=== PATIENT | male | born 1985 | race Caucasian/White ===

== ENCOUNTER 2018-05-20 11:47 | Emergency (ER) | payer OTHER ==
--- NOTE | 2018-05-20 12:10 | ER ---
Nurse's Notes [facility] Name: Carson Bridges Age: 32 yrs Sex: Male : 1985 Arrival Date: 05/20/2018 Time: 11:53 Bed 24 Private MD: Unknown, Unknown Diagnosis: Abscess of external ear-left Presentation: 05/20 11:58 Presenting complaint: Patient states: pimple behind L ear x "a few weeks" has gotten ss bigger and began draining today. Denies fever. Transition of care: patient was not received from another setting of care. Onset of symptoms was May 06, 2018. Risk Assessment: Do you want to hurt yourself or someone else? Patient reports no desire to harm self or others. Initial Sepsis Screen: Does the patient meet any 2 criteria? No. Patient's initial sepsis screen is negative. Does the patient have a suspected source of infection? No. Patient's initial sepsis screen is negative. Care prior to arrival: None. 11:58 Method Of Arrival: Ambulatory 11:58 Acuity: GALLO 4 ss Historical: - Allergies: 12:00 No Known Allergies; ss - Home Meds: 12:00 lisinopril 40 mg Oral tab 1 tab once daily [Active]; ss - PMHx: 12:00 Hypertension; ss - PSHx: 12:00 None; ss - Immunization history:: Adult Immunizations unknown. - Social history:: Smoking status: Patient uses tobacco products, smokes one pack cigarettes per day. - Ebola Screening: : Patient denies exposure to infectious person Patient denies travel to an Ebola-affected area in the 21 days before illness onset No symptoms or risks identified at this time. Screenin:33 Abuse screen: Denies threats or abuse. Denies injuries from another. Nutritional sv screening: No deficits noted. Tuberculosis screening: No symptoms or risk factors identified. Fall Risk None identified. Vital Signs: 11:58 BP 137 / 93; Pulse 76; Resp 16; Temp 98.3(TE); Pulse Ox 99% on R/A; Weight 102.06 kg; ss Height 6 ft. 1 in. (185.42 cm); Pain 0/10; 11:58 Body Mass Index 29.68 (102.06 kg, 185.42 cm) ED Course: 11:53 Patient arrived in ED. jb7 11:53 Unknown, Unknown is Private Physician. jb7 11:56 [facility] snw 11:56 Johnny Juarez MD is Attending Physician. snw 11:58 Arm band placed on right wrist. ss 11:59 Triage completed. ss 12:31 Becky Naidu, RN is Primary Nurse. ss 12:33 Patient has correct armband on for positive identification. sv 12:33 No provider procedures requiring assistance completed. Patient did not have IV access sv during this emergency room visit. Administered Medications: 12:33 Drug: Clindamycin 300 mg Route: PO; sv 12:33 Follow up: Response: Medication administered at discharge. sv 12:33 CANCELLED (Patient Refused): TORadol 60 mg IM once sv Outcome: 12:09 Discharge ordered by . snw 12:33 Discharged to home ambulatory, with family. sv 12:33 Condition: stable 12:33 Discharge instructions given to patient, Instructed on discharge instructions, follow up and referral plans. medication usage, Demonstrated understanding of instructions, follow-up care, medications, Prescriptions given X 2. 12:33 Patient left the ED. sv Signatures: Pippa Ohara, RN RN Nohelia Spivey FNP-C ROTOPRINTER-Csnw Becky Naidu, RN RN Randy Patel jb7
--- NOTE | 2018-05-20 12:10 | EDPHYS ---
Physician Documentation [facility] Name: Carson Bridges Age: 32 yrs Sex: Male : 1985 Arrival Date: 05/20/2018 Time: 11:53 Bed 24 Private MD: Unknown, Unknown ED Physician Johnny Juarez HPI: 05/20 12:14 This 32 yrs old Male presents to ER via Ambulatory with complaints of Skin snw Problem. 12:14 Onset: The symptoms/episode began/occurred gradually. Associated signs and symptoms: snw Pertinent positives: pressure. Modifying factors: The patient symptoms are alleviated by nothing, the patient symptoms are aggravated by squeezing . The patient has not experienced similar symptoms in the past. The patient has not recently seen a physician. Historical: - Allergies: 12:00 No Known Allergies; ss - Home Meds: 12:00 lisinopril 40 mg Oral tab 1 tab once daily [Active]; ss - PMHx: 12:00 Hypertension; ss - PSHx: 12:00 None; ss - Immunization history:: Adult Immunizations unknown. - Social history:: Smoking status: Patient uses tobacco products, smokes one pack cigarettes per day. - Ebola Screening: : Patient denies exposure to infectious person Patient denies travel to an Ebola-affected area in the 21 days before illness onset No symptoms or risks identified at this time. ROS: 12:14 Constitutional: Negative for fever, chills, and weight loss, Eyes: Negative for injury, snw pain, redness, and discharge, Neck: Negative for injury, pain, and swelling, Cardiovascular: Negative for chest pain, palpitations, and edema, Respiratory: Negative for shortness of breath, cough, wheezing, and pleuritic chest pain, Abdomen/GI: Negative for abdominal pain, nausea, vomiting, diarrhea, and constipation, Back: Negative for injury and pain, : Negative for injury, bleeding, discharge, and swelling, MS/Extremity: Negative for injury and deformity, Skin: Negative for injury, rash, and discoloration, Neuro: Negative for headache, weakness, numbness, tingling, and seizure. 12:14 ENT: Positive for "pimple behind left earlobe". Exam: 12:12 Constitutional: This is a well developed, well nourished patient who is awake, alert, snw and in no acute distress. Head/Face: Normocephalic, atraumatic. Eyes: Pupils equal round and reactive to light, extra-ocular motions intact. Lids and lashes normal. Conjunctiva and sclera are non-icteric and not injected. Cornea within normal limits. Periorbital areas with no swelling, redness, or edema. Neck: Trachea midline, no thyromegaly or masses palpated, and no cervical lymphadenopathy. Supple, full range of motion without nuchal rigidity, or vertebral point tenderness. No Meningismus. Chest/axilla: Normal chest wall appearance and motion. Nontender with no deformity. No lesions are appreciated. Cardiovascular: Regular rate and rhythm with a normal S1 and S2. No gallops, murmurs, or rubs. Normal PMI, no JVD. No pulse deficits. Respiratory: Lungs have equal breath sounds bilaterally, clear to auscultation and percussion. No rales, rhonchi or wheezes noted. No increased work of breathing, no retractions or nasal flaring. Abdomen/GI: Soft, non-tender, with normal bowel sounds. No distension or tympany. No guarding or rebound. No evidence of tenderness throughout. Back: No spinal tenderness. No costovertebral tenderness. Full range of motion. Skin: Warm, dry with normal turgor. Normal color with no rashes, no lesions, and no evidence of cellulitis. MS/ Extremity: Pulses equal, no cyanosis. Neurovascular intact. Full, normal range of motion. Neuro: Awake and alert, GCS 15, oriented to person, place, time, and situation. Cranial nerves II-XII grossly intact. Motor strength 5/5 in all extremities. Sensory grossly intact. Cerebellar exam normal. Normal gait. 12:12 ENT: External ear(s): left postauricular area with cystic lesion that pt "exploded" this am, central area of cyst with scabbed area. Vital Signs: 11:58 BP 137 / 93; Pulse 76; Resp 16; Temp 98.3(TE); Pulse Ox 99% on R/A; Weight 102.06 kg; ss Height 6 ft. 1 in. (185.42 cm); Pain 0/10; 11:58 Body Mass Index 29.68 (102.06 kg, 185.42 cm) ss MDM: 12:03 Patient medically screened. snw 12:15 Data reviewed: vital signs, nurses notes. Data interpreted: Pulse oximetry: on room air snw is 99 %. Interpretation: normal. Counseling: I had a detailed discussion with the patient and/or guardian regarding: the historical points, exam findings, and any diagnostic results supporting the discharge/admit diagnosis, the presence of at least one elevated blood pressure reading (>120/80) during this emergency department visit, the need for outpatient follow up, to return to the emergency department if symptoms worsen or persist or if there are any questions or concerns that arise at home. Special discussion: I discussed in detail with the patient the higher chance of wound infection based on his presenting history. Based on the history and exam findings, there is no indication for further emergent testing or inpatient evaluation. I discussed with the patient/guardian the need to see the ENT specialist for further evaluation of the symptoms. I discussed with the patient/guardian the need to see the general surgeon for further evaluation of the symptoms. I discussed with the patient/guardian the need to see the primary care provider for further evaluation of the symptoms. Administered Medications: 12:33 Drug: Clindamycin 300 mg Route: PO; sv 12:33 Follow up: Response: Medication administered at discharge. sv 12:33 CANCELLED (Patient Refused): TORadol 60 mg IM once sv Disposition: 17:12 Co-signature as Attending Physician, Johnny Juarez MD. rn Disposition: 05/20/18 12:09 Discharged to Home. Impression: Abscess of external ear - left. - Condition is Stable. - Discharge Instructions: Abscess, Heat Therapy. - Prescriptions for Clindamycin HCl 300 mg Oral Capsule - take 1 capsule by ORAL route every 8 hours for 10 days; 30 capsule. Diclofenac Sodium 75 mg Oral Tablet Sustained Release - take 1 tablet by ORAL route 2 times per day; 30 tablet. - Medication Reconciliation Form, Thank You Letter, Antibiotic Education, Prescription Opioid Use form. - Follow up: Private Physician; When: 2 - 3 days; Reason: Recheck today's complaints, Continuance of care, Re-evaluation by your physician. Follow up: Emergency Department; When: As needed; Reason: Worsening of condition. Signatures: Pippa Ohara RN RN sv Therrien, Shelly, [employer]PENTER [employer]OR SUPERVISOR-C [employer] SUPERVISOR-Csnw Juarez, Johnny, MD MD rn Smirch, Becky, RN RN ss Corrections: (The following items were deleted from the chart) 12:33 12:07 TORadol 60 mg IM once ordered. snw sv 12:33 12:09 05/20/2018 12:09 Discharged to Home. Impression: Abscess of external ear - left. sv Condition is Stable. Forms are Medication Reconciliation Form, Thank You Letter, Antibiotic Education, Prescription Opioid Use. Follow up: Private Physician; When: 2 - 3 days; Reason: Recheck today's complaints, Continuance of care, Re-evaluation by your physician. Follow up: Emergency Department; When: As needed; Reason: Worsening of condition. snw
[2018-05-20] MEDS ORDERED: CLINDAMYCIN HCL 150 MG CAP ONE (12:30)
[2018-05-20] MEDS ORDERED: KETOROLAC 30 MG/ML INJ ONE (12:31)
[2018-05-20 12:36] VITALS: BP 137/93; TEMP 98.3; O2SAT 99
== END 2018-05-20 12:33 | disposition home or self-care (01) ==
LOC: ER 11:47
DX: H60.02 Abscess of left external ear (principal); I10 Essential (primary) hypertension; F17.210 Nicotine dependence, cigarettes, uncomplicated
CPT/HCPCS: 99283

== ENCOUNTER 2018-05-24 22:53 | Observation (INO) | payer OTHER ==
--- OUTSIDE RECORDS SUMMARY | 2018-05-24 22:54 | XMS REPORT ---
:1985 Author Organization [employer] Care Team Providers Name Role Phone Mia Wilkes Provider Role Unavailable Allergies, Adverse Reactions, Alerts Substance Reaction Event Type N.K.D.A. Info Not Available Non Drug Allergy Problems Problem Type Condition Code Onset Dates Condition Status Assessment Hypertension I10 Active Problem Hypertension I10 Active Assessment Nicotine abuse Z72.0 Active Medications Medication Code Code Instructions Start End Date Status Dosage System Date Lisinopril [facility] [id number] 40 MG Orally May 14, Active 1 tablet Once a day 2017 [place] [id number] 1 MG Orally May 14, Sep 11, Active 1 tablet Continuing Twice a day 2017 2017 Month Evan Results No Known Results Summary Purpose [employer] Submission
[2018-05-24] MEDS ORDERED: NA CHLORIDE 0.9% 1,000 ML ONE (23:35)
[2018-05-24 23:53] LABS: Absolute Lymphocytes (CBC) 3.4 K/uL (0.7-4.9); Absolute Monocytes 0.5 K/uL (0.1-1.3); Absolute Neutrophil 5.1 K/uL (1.8-8.0); Basophils % 1.3 % (0-1.3); Eosinophils % 2.2 % (0-4.4); Hematocrit 43.3 % (39.6-49.0); Lymphocytes % 36.3 % (15.3-44.8); MCH 29.5 pg (27.0-35.0); MCV 85.2 fL (80-100); MPV 8.9 fL (7.6-11.3); Monocytes % 5.8 % (3.3-12.3); RBC Red Blood Cell Count 5.09 M/uL (4.33-5.43)
[2018-05-24 23:58] LABS: Protime INR 0.89
--- NOTE | 2018-05-25 00:16 | EDPHYS ---
Physician Documentation [facility] Name: Carson Bridges Age: 32 yrs Sex: Male : 1985 Arrival Date: 05/24/2018 Time: 22:57 Bed 6 Private MD: ED Physician Brett Loza HPI: 05/25 00:13 This 32 yrs old Male presents to ER via Ambulatory with complaints of R CHEST karla PAIN, R ARM PAIN. 00:13 The patient or guardian reports chest pain that is located primarily in the substernal karla area, anterior chest wall, right. The pain radiates to the right arm. Associated signs and symptoms: Pertinent positives: None. The chest pain is described as dull. Modifying factors: The symptoms are alleviated by nothing. the symptoms are aggravated by nothing. Severity of pain: At its worst the pain was mild in the emergency department the pain is unchanged. The patient has not experienced similar symptoms in the past. Historical: - Allergies: 05/24 23:08 No Known Allergies; fc - Home Meds: 23:08 lisinopril 40 mg Oral tab 1 tab once daily [Active]; fc - PMHx: 23:08 Hypertension; fc - PSHx: 23:08 gordon removed; EGD; wrist surg; fc - Immunization history:: Last tetanus immunization: unknown. - Social history:: Smoking status: Patient uses tobacco products, smokes one pack cigarettes per day. Patient/guardian denies using alcohol, street drugs. - Ebola Screening: : Patient negative for fever greater than or equal to 101.5 degrees Fahrenheit, and additional compatible Ebola Virus Disease symptoms Patient denies exposure to infectious person Patient denies travel to an Ebola-affected area in the 21 days before illness onset. - Family history:: not pertinent. ROS: 05/25 00:13 Constitutional: Negative for fever, chills, and weight loss, Eyes: Negative for injury, karla pain, redness, and discharge, ENT: Negative for injury, pain, and discharge, Neck: Negative for injury, pain, and swelling, Respiratory: Negative for shortness of breath, cough, wheezing, and pleuritic chest pain, Abdomen/GI: Negative for abdominal pain, nausea, vomiting, diarrhea, and constipation, Back: Negative for injury and pain, : Negative for injury, bleeding, discharge, and swelling, MS/Extremity: Negative for injury and deformity, Skin: Negative for injury, rash, and discoloration, Neuro: Negative for headache, weakness, numbness, tingling, and seizure, Psych: Negative for depression, anxiety, suicide ideation, homicidal ideation, and hallucinations, Allergy/Immunology: Negative for hives, rash, and allergies, Endocrine: Negative for neck swelling, polydipsia, polyuria, polyphagia, and marked weight changes, Hematologic/Lymphatic: Negative for swollen nodes, abnormal bleeding, and unusual bruising. Cardiovascular: Positive for chest pain, of the right supraclavicular area, right clavicle and anterior aspect of right upper chest. Exam: 00:13 Constitutional: This is a well developed, well nourished patient who is awake, alert, karla and in no acute distress. Head/Face: Normocephalic, atraumatic. Eyes: Pupils equal round and reactive to light, extra-ocular motions intact. Lids and lashes normal. Conjunctiva and sclera are non-icteric and not injected. Cornea within normal limits. Periorbital areas with no swelling, redness, or edema. ENT: Nares patent. No nasal discharge, no septal abnormalities noted. Tympanic membranes are normal and external auditory canals are clear. Oropharynx with no redness, swelling, or masses, exudates, or evidence of obstruction, uvula midline. Mucous membranes moist. Neck: Trachea midline, no thyromegaly or masses palpated, and no cervical lymphadenopathy. Supple, full range of motion without nuchal rigidity, or vertebral point tenderness. No Meningismus. Chest/axilla: Normal chest wall appearance and motion. Nontender with no deformity. No lesions are appreciated. Cardiovascular: Regular rate and rhythm with a normal S1 and S2. No gallops, murmurs, or rubs. Normal PMI, no JVD. No pulse deficits. Respiratory: Lungs have equal breath sounds bilaterally, clear to auscultation and percussion. No rales, rhonchi or wheezes noted. No increased work of breathing, no retractions or nasal flaring. Abdomen/GI: Soft, non-tender, with normal bowel sounds. No distension or tympany. No guarding or rebound. No evidence of tenderness throughout. Back: No spinal tenderness. No costovertebral tenderness. Full range of motion. Male : Normal genitalia with no discharge or lesions. Skin: Warm, dry with normal turgor. Normal color with no rashes, no lesions, and no evidence of cellulitis. MS/ Extremity: Pulses equal, no cyanosis. Neurovascular intact. Full, normal range of motion. Neuro: Awake and alert, GCS 15, oriented to person, place, time, and situation. Cranial nerves II-XII grossly intact. Motor strength 5/5 in all extremities. Sensory grossly intact. Cerebellar exam normal. Normal gait. Psych: Awake, alert, with orientation to person, place and time. Behavior, mood, and affect are within normal limits. Vital Signs: 05/24 23:09 BP 167 / 87 RA Sitting (auto/lg); Pulse 58; Resp 20; Temp 98.0(O); Pulse Ox 100% on fc R/A; Weight 104.33 kg (R); Height 6 ft. 1 in. (185.42 cm) (R); Pain 5/10; 23:09 BP 154 / 92; Pulse 54; Resp 15; Temp 98.1; Pulse Ox 99% on R/A; Pain 1/10; ak1 05/25 01:19 BP 154 / 92; Pulse 59; Resp 18; Temp 98.1(O); Pulse Ox 99% on R/A; Pain 0/10; ak1 02:50 BP 113 / 81; Pulse 57; Resp 16; Temp 98.1(O); Pulse Ox 99% on R/A; Pain 0/10; ak1 05/24 23:09 Body Mass Index 30.34 (104.33 kg, 185.42 cm) 05/24 23:09 pt refused morphine and zofran at this time. will re-assess at a later time. ak1 MDM: 23:18 Patient medically screened. [facility] 05/24 23:18 Order name: Basic Metabolic Panel; Complete Time: 00:40 [facility] 05/24 23:18 Order name: CBC with Diff; Complete Time: 00:12 [facility] 05/24 23:18 Order name: Ckmb; Complete Time: 00:40 [facility] 05/24 23:18 Order name: CPK; Complete Time: 00:40 [facility] 05/24 23:18 Order name: LFT's; Complete Time: 00:40 [facility] 05/24 23:18 Order name: Magnesium; Complete Time: 00:40 [facility] 05/24 23:18 Order name: NT PRO-BNP; Complete Time: 00:40 [facility] 05/24 23:18 Order name: PT-INR; Complete Time: 00:40 [facility] 05/24 23:18 Order name: Ptt, Activated; Complete Time: 00:40 [facility] 05/24 23:18 Order name: Troponin (emerg Dept Use Only); Complete Time: 00:40 [facility] 05/24 23:18 Order name: XRAY Chest (1 view) [facility] 05/24 23:18 Order name: D-Dimer; Complete Time: 00:40 [facility] 05/24 23:18 Order name: Lipase; Complete Time: 00:40 [facility] 05/24 23:39 Order name: Urine Dipstick--Ancillary (enter results) [facility] 05/24 23:18 Order name: EKG; Complete Time: 23:18 [facility] 05/24 23:18 Order name: Cardiac monitoring; Complete Time: 23:33 [facility] 05/24 23:18 Order name: EKG - Nurse/Tech; Complete Time: 23:33 [facility] 05/24 23:18 Order name: IV Saline Lock; Complete Time: 23:42 [facility] 05/24 23:18 Order name: Labs collected and sent; Complete Time: 23:42 [facility] 05/24 23:18 Order name: O2 Per Protocol; Complete Time: 23:25 [facility] 05/24 23:18 Order name: O2 Sat Monitoring; Complete Time: 23:25 [facility] 05/25 00:09 Order name: CT Aorta for Dissection [facility] 05/25 00:21 Order name: CONS Physician Consult [facility] 05/25 00:21 Order name: Echo with Doppler [facility] 05/24 23:18 Order name: Urine Dipstick-Ancillary (obtain specimen); Complete Time: 23:26 [facility] Administered Medications: 05/25 00:17 Drug: NS 0.9% 1000 ml Route: IV; Rate: 125 ml/hr; Site: left antecubital; ak1 00:43 Follow up: IV Status: Order to discontinue infusion ak1 00:22 Drug: Aspirin 162 mg Route: PO; ak1 00:31 Follow up: Response: No adverse reaction ak1 00:43 Drug: NS 0.9% 1000 ml Route: IV; Rate: 1 bolus; Site: left antecubital; ak1 01:54 Follow up: IV Status: Completed infusion ak1 01:10 Drug: Mucomyst - Acetylcysteine 600 mg Route: PO; ak1 01:53 Follow up: Response: No adverse reaction ak1 02:39 Not Given (Patient Refused): morphine 2 mg IVP once ak1 02:39 Not Given (Patient Refused): Zofran 4 mg IVP once; over 2 minutes ak1 Disposition: 05/25/18 00:15 Hospitalization ordered by Brain Colvin for Observation. Preliminary diagnosis are Chest pain, unspecified, Essential (primary) hypertension, Unspecified kidney failure. - Bed requested for Telemetry/MedSurg (observation). - Status is Observation. fc - Condition is Stable. - Problem is new. - Symptoms have improved. UTI on Admission? No Signatures: Dispatcher [employer] EDMS Trista Longoria rg2 Brett Loza MD MD cha Chretien, Felicia, RN RN Annalisa Wilson RN RN ak1 Corrections: (The following items were deleted from the chart) 01:17 00:15 Hospitalization Ordered by Brain Colvin MD for Observation. Preliminary rg2 diagnosis is Chest pain, unspecified; Essential (primary) hypertension. Bed requested for Telemetry/MedSurg (observation). Status is Observation. Condition is Stable. Problem is new. Symptoms have improved. UTI on Admission? No. karla 02:30 01:17 05/25/2018 00:15 Hospitalization Ordered by Brain Colvin MD for Observation. karla Preliminary diagnosis is Chest pain, unspecified; Essential (primary) hypertension. Bed requested for Telemetry/MedSurg (observation). Status is Observation. Condition is Stable. Problem is new. Symptoms have improved. UTI on Admission? No. rg2 03:08 02:30 05/25/2018 00:15 Hospitalization Ordered by Brain Colvin MD for Observation. fc Preliminary diagnosis is Chest pain, unspecified; Essential (primary) hypertension; Unspecified kidney failure. Bed requested for Telemetry/MedSurg (observation). Status is Observation. Condition is Stable. Problem is new. Symptoms have improved. UTI on Admission? No. karla
--- NOTE | 2018-05-25 00:16 | ER ---
Nurse's Notes [facility] Name: Carson Bridges Age: 32 yrs Sex: Male : 1985 Arrival Date: 05/24/2018 Time: 22:57 Bed 6 Private MD: Diagnosis: Chest pain, unspecified;Essential (primary) hypertension;Unspecified kidney failure Presentation: 05/24 23:05 Presenting complaint: Patient states: that he is having right sides chest pain that fc radiates to his right shoulder and right arm. Started at 2000 tonight while getting ready for bed. Denies any N/V/D or shortness of breath. Pt is currently on Clindamycin for abscess behind left ear. Transition of care: patient was not received from another setting of care. Onset of symptoms was May 24, 2018 at 20:00. Risk Assessment: Do you want to hurt yourself or someone else?. Care prior to arrival: None. 23:05 Method Of Arrival: Ambulatory 23:05 Acuity: GALLO 3 05/25 00:24 Initial Sepsis Screen: Does the patient meet any 2 criteria? No. Patient's initial ak1 sepsis screen is negative. Does the patient have a suspected source of infection? No. Patient's initial sepsis screen is negative. Historical: - Allergies: 05/24 23:08 No Known Allergies; fc - Home Meds: 23:08 lisinopril 40 mg Oral tab 1 tab once daily [Active]; fc - PMHx: 23:08 Hypertension; fc - PSHx: 23:08 gordon removed; EGD; wrist surg; fc - Immunization history:: Last tetanus immunization: unknown. - Social history:: Smoking status: Patient uses tobacco products, smokes one pack cigarettes per day. Patient/guardian denies using alcohol, street drugs. - Ebola Screening: : Patient negative for fever greater than or equal to 101.5 degrees Fahrenheit, and additional compatible Ebola Virus Disease symptoms Patient denies exposure to infectious person Patient denies travel to an Ebola-affected area in the 21 days before illness onset. - Family history:: not pertinent. Screenin:12 Abuse screen: Denies threats or abuse. Denies injuries from another. Nutritional ak1 screening: No deficits noted. Tuberculosis screening: No symptoms or risk factors identified. Fall Risk None identified. Assessment: 23:09 General: Appears in no apparent distress. Behavior is calm, cooperative. ak1 23:09 Pain: Complains of pain in right clavicle and right supraclavicular area. Neuro: No ak1 deficits noted. Cardiovascular: Reports chest pain, Denies nausea, shortness of breath, vomiting. Respiratory: No deficits noted. GI: No signs and/or symptoms were reported involving the gastrointestinal system. : No signs and/or symptoms were reported regarding the genitourinary system. EENT: No signs and/or symptoms were reported regarding the EENT system. Derm: No signs and/or symptoms reported regarding the dermatologic system. Musculoskeletal: No signs and/or symptoms reported regarding the musculoskeletal system. 05/25 00:33 Reassessment: Patient appears in no apparent distress at this time. No changes from ak1 previously documented assessment. Patient and/or family updated on plan of care and expected duration. Pain level reassessed. Patient is alert, oriented x 3, equal unlabored respirations, skin warm/dry/pink. Patient states feeling better. Patient states symptoms have improved. 01:49 Reassessment: pt waiting on CT results before ERP will allow report to be called and pt ak1 to be transported upstairs. . Vital Signs: 05/24 23:09 BP 167 / 87 RA Sitting (auto/lg); Pulse 58; Resp 20; Temp 98.0(O); Pulse Ox 100% on fc R/A; Weight 104.33 kg (R); Height 6 ft. 1 in. (185.42 cm) (R); Pain 5/10; 23:09 BP 154 / 92; Pulse 54; Resp 15; Temp 98.1; Pulse Ox 99% on R/A; Pain 1/10; ak1 05/25 01:19 BP 154 / 92; Pulse 59; Resp 18; Temp 98.1(O); Pulse Ox 99% on R/A; Pain 0/10; ak1 02:50 BP 113 / 81; Pulse 57; Resp 16; Temp 98.1(O); Pulse Ox 99% on R/A; Pain 0/10; ak1 05/24 23:09 Body Mass Index 30.34 (104.33 kg, 185.42 cm) 05/24 23:09 pt refused morphine and zofran at this time. will re-assess at a later time. ak1 ED Course: 22:57 Patient arrived in ED. al2 23:08 Triage completed. fc 23:09 Arm band placed on right wrist. Patient placed in an exam room, on a stretcher. fc 23:11 Annalisa Wilson, RN is Primary Nurse. ak1 23:18 Brett Loza MD is Attending Physician. karla 23:34 X-ray completed. Portable x-ray completed in exam room. Patient tolerated procedure kw well. 23:35 XRAY Chest (1 view) In Process Unspecified. EDMS 07 00:15 Brain Colvin MD is Hospitalizing Provider. karla 00:25 Patient has correct armband on for positive identification. Placed in gown. Bed in low ak1 position. Call light in reach. Side rails up X2. yarn cleaner on. Pulse ox on. NIBP on. 00:25 No provider procedures requiring assistance completed. Inserted saline lock: 20 gauge ak1 in left antecubital area, using aseptic technique. ,using aseptic technique. placed by Nancy Mesa Patient admitted, IV remains in place. 00:[address] via wheelchair. kw1 01:04 CT completed. Patient tolerated procedure well. Patient moved back from CT. kw1 Administered Medications: 00:17 Drug: NS 0.9% 1000 ml Route: IV; Rate: 125 ml/hr; Site: left antecubital; ak1 00:43 Follow up: IV Status: Order to discontinue infusion ak1 00:22 Drug: Aspirin 162 mg Route: PO; ak1 00:31 Follow up: Response: No adverse reaction ak1 00:43 Drug: NS 0.9% 1000 ml Route: IV; Rate: 1 bolus; Site: left antecubital; ak1 01:54 Follow up: IV Status: Completed infusion ak1 01:10 Drug: Mucomyst - Acetylcysteine 600 mg Route: PO; ak1 01:53 Follow up: Response: No adverse reaction ak1 02:39 Not Given (Patient Refused): morphine 2 mg IVP once ak1 02:39 Not Given (Patient Refused): Zofran 4 mg IVP once; over 2 minutes ak1 Outcome: 00:15 Decision to Hospitalize by Provider. karla 00:25 Condition: stable ak1 00:25 Instructed on the need for admit. 02:40 Admitted to Med/surg accompanied by tech, via wheelchair, room 217, with chart, Report ak1 called to Imelda castro RN 03:08 Patient left the ED. fc Signatures: Dispatcher [employer] EDBrett Galeano MD MD cha Chretien, Felicia RN RN Carol Hanson Amber, RN RN ak1 Kendy Interiano1 Judy Lam
[2018-05-25 00:22] LABS: ALT/SGPT 45 U/L (12-78); AST/SGOT 24 U/L (15-37); Albumin 3.9 g/dL (3.4-5.0); Alkaline Phosphatase 87 U/L (45-117); BUN Blood Urea Nitrogen 15 mg/dL (7-18); Bicarbonate 32 mmol/L (21-32); Bilirubin Direct < 0.1 mg/dL (0-0.2); Bilirubin Total 0.4 mg/dL (0.2-1.0); CKMB Creatine Kinase MB < 1.0 ng/mL (0.3-3.6); Creatine Phosphokinase 99 U/L (39-308); Glucose Level 104 mg/dL (74-106); Lipase 264 U/L (73-393); NT PRO-BNP 450 pg/mL (<125); Potassium 4.1 mmol/L (3.5-5.1); Protein, Total 7.6 g/dL (6.4-8.2); Sodium Level 142 mmol/L (136-145)
[2018-05-25] MEDS ORDERED: ASPIRIN 81 MG CHEWABLE TABLET ONE (00:24)
[2018-05-25] MEDS ORDERED: ALPRAZOLAM 0.25 MG TABLET PO PRN (01:06)
[2018-05-25] MEDS ORDERED: ACETAMINOPHEN 500 MG TAB PO PRN (01:06)
[2018-05-25] MEDS ORDERED: MORPHINE 4 MG/ML SYR IV PRN (01:06)
[2018-05-25] MEDS ORDERED: ACETYLCYST 6,000 MG/30 ML VIAL ONE (01:08)
[2018-05-25 01:21] LABS: Urine Blood NEGATIVE (NEG); Urine Glucose NEGATIVE (NEG); Urine Protein NEGATIVE (NEG); Urine Specific Gravity 1.015 (1.005-1.030)
[2018-05-25 03:14] VITALS: O2SAT 99
[2018-05-25 03:36] VITALS: BMI 29.8
--- NOTE | 2018-05-25 06:33 | EKG ---
Test Date: 2018-05-24 Test Time: 23:28:12 Sign Designer: YANDEL MEASUREMENT RESULTS: Intervals: Rate: 58 IN: 134 QRSD: 108 QT: 406 QTc: 398 [place]: P: 36 IN: 134 QRS: 72 T: 56 INTERPRETIVE STATEMENTS: Sinus bradycardia Incomplete right bundle branch block Borderline ECG No previous ECG available for comparison Electronically Signed On 05-25-18 06:32:28 CDT by Edgar Burgess
--- NOTE | 2018-05-25 06:33 | P.HP ---
Certification for Inpatient Patient admitted to: Observation With expected LOS: <2 Midnights Patient will require the following post-hospital care: None Practitioner: I am a practitioner with admitting privileges, knowledge of patient current condition, hospital course, and medical plan of care. Services: Services provided to patient in accordance with Admission requirements found in Title 42 Section 412.3 of the Code of Federal Regulations Patient History Date of Service: 05/25/18 Reason for admission: Chest pain rule out acute coronary syndrome History of Present Illness: Patient is a 32-year-old gentleman who came into the hospital with chest pain. Pain was mainly in the right-sided sternal region and radiated down his right arm. Patient had numbness and tingling in the right arm. Patient came in for further evaluation. Allergies No Known Allergies Allergy (Verified 05/25/18 03:13) Home Medications: Clindamycin HCl 300 mg PO TID 05/25/18 Diclofenac Sodium 75 mg PO BID 05/25/18 Lisinopril 40 mg PO DAILY 05/25/18 - Past Medical/Surgical History Has patient received pneumonia vaccine in the past: No Diabetic: No -: HTN - Family History Father Medical History: Hypertension - Social History Smoking Status: Current every day smoker Alcohol use: Yes CD- Drugs: No Caffeine use: Yes Place of Residence: Home Physical Examination - Vital Signs Temperature: 97.4 F Blood Pressure: 152/83 Pulse: 58 Respirations: 18 Pulse Ox (%): 97 - Studies Laboratory Data (last 24 hrs) 05/24/18 23:35: PT 10.5, INR 0.89, APTT 21.6 L 05/24/18 23:35: WBC 9.3, Hgb 15.0, Hct 43.3, Plt Count 224 05/24/18 23:35: Sodium 142, Potassium 4.1, BUN 15, Creatinine 1.50 H, Glucose 104, Magnesium 2.0, Total Bilirubin 0.4, AST 24, ALT 45, Alkaline Phosphatase 87 , Lipase 264 Assessment & Plan - Advance Directives Does patient have a Living Will: No Does patient have a Durable POA for Healthcare: No
--- NOTE | 2018-05-25 08:18 | RAD REPORT ---
EXAM DESCRIPTION: CT - Angio Aorta For Dissection - 05/25/2018 2:53 am CLINICAL HISTORY: . Chest pain/abdominal pain since 8 p.m. today COMPARISON: None all TECHNIQUE: Computed tomography angiography of the chest, abdomen pelvis were obtained. 100 cc Isovue 370 was administered intravenously. Coronal and sagittal reconstruction were performed.A preliminary report was generated by [employer] and reviewed prior to this dictation All CT scans are performed using dose optimization technique as appropriate and may include automated exposure control or mA/KV adjustment according to patient size. FINDINGS: An aortic dissection is not seen. An aortic aneurysm is not displayed. The celiac, SMA and BARBARA are patent . 2 main right renal arteries are present. A lung consolidation is not present. A pericardial effusion is not seen. A pleural effusion is not n oted. The liver,spleen, pancreas adrenals kidneys demonstrate no significant abnormality. A 19 millimeters cyst extends off of left kidney The appendix is normal. There no evidence diverticulitis. No ascites is noted. Small inguinal hernias contain fat IMPRESSION: Negative for an aortic dissection.
--- NOTE | 2018-05-25 08:18 | RAD REPORT ---
EXAM DESCRIPTION: Augustina Single View05/24/2018 11:38 pm CLINICAL HISTORY: Chest pain COMPARISON: 2011 FINDINGS: The lungs appear clear of acute infiltrate. The heart is normal size IMPRESSION: No acute abnormalities displayed
[2018-05-25] MEDS ORDERED: ASPIRIN EC 81 MG TAB PO SCH (09:00)
[2018-05-25] MEDS ORDERED: LISINOPRIL 10 MG TAB PO SCH (09:00)
[2018-05-25] MEDS ORDERED: METOPROLOL TAR 50 MG TAB PO SCH (09:00)
[2018-05-25] MEDS ORDERED: ENOXAPARIN 40 MG/0.4 ML SQ SCH (09:00)
[2018-05-25] MEDS: PANTOPRAZOLE 40MG TABLET PO SCH ×2 (10:21→10:22)
--- NOTE | 2018-05-25 10:37 | P.PN ---
Subjective Date of Service: 05/25/18 Primary Care Provider: Iraj Wilkes NP Chief Complaint: Chest pain rule out acute coronary syndrome Subjective: Improving Physical Examination - Vital Signs Temperature: 97.2 F Blood Pressure: 130/77 Pulse: 50 Respirations: 16 Pulse Ox (%): 99 - Physical Exam General: Alert, In no apparent distress, Oriented x3, Cooperative HEENT: Atraumatic Neck: Supple Respiratory: Clear to auscultation bilaterally, Normal air movement Cardiovascular: Normal pulses, Regular rate/rhythm Gastrointestinal: Normal bowel sounds, Soft and benign, Non-distended, No tenderness, No masses, No rebound, No guarding Musculoskeletal: No erythema, No tenderness, No warmth Integumentary: No tenderness/swelling, No erythema, No warmth, No cyanosis Neurological: Normal speech, Normal strength at 5/5 x4 extr, Normal tone, Normal affect Lymphatics: No axilla or inguinal lymphadenopathy - Studies Laboratory Data (last 24 hrs) 05/24/18 23:35: PT 10.5, INR 0.89, APTT 21.6 L 05/24/18 23:35: WBC 9.3, Hgb 15.0, Hct 43.3, Plt Count 224 05/24/18 23:35: Sodium 142, Potassium 4.1, BUN 15, Creatinine 1.50 H, Glucose 104, Magnesium 2.0, Total Bilirubin 0.4, AST 24, ALT 45, Alkaline Phosphatase 87 , Lipase 264 Medications List Reviewed: Yes Assessment & Plan - Problems (Diagnosis) (1) Chest pain Current Visit: Yes Status: Acute Plan: Patient with atypical right chest pain echo and stress test ordered. Anticipate possible discharge today if negative. Patient may have underlying GERD. Will provide PPI. Qualifiers: Chest pain type: unspecified Qualified Code(s): R07.9 - Chest pain, unspecified (2) Hypertension Current Visit: Yes Status: Chronic Plan: Will continue with medication. Patient takes MIRELLA-inhibitor at home. Will decrease MIRELLA-inhibitor due to renal insufficiency. Qualifiers: Hypertension type: essential hypertension Qualified Code(s): I10 - Essential (primary) hypertension (3) GERD (gastroesophageal reflux disease) Current Visit: Yes Status: Suspected Plan: Suspect GERD. Will provide medication. Patient may require a GI evaluation as an outpatient. Qualifiers: Esophagitis presence: esophagitis presence not specified Qualified Code(s) : K21.9 - Gastro-esophageal reflux disease without esophagitis (4) Renal insufficiency Current Visit: Yes Status: Acute Plan: Maybe from recent nonsteroidal anti-inflammatory use and MIRELLA-inhibitor. Will recheck BMP. Will check renal ultrasound. Discharge Plan: Home Plan to discharge in: 24 Hours Time Spent Managing Pts Care (In Minutes): 55
[2018-05-25 11:16] LABS: Potassium 4.1 mmol/L (3.5-5.1); Thyroid Stimulating Hormone 1.53 uIU/mL (0.36-3.74)
--- NOTE | 2018-05-25 11:55 | CON ---
Identification: A 32-year-old man. Chief Complaint: Pain in the chest. History Of Present Illness: Mr. Bridges started having chest pain 8:00 p.m. last night, upper rig ht part of his chest, pectoral muscle and above and radiates down his right arm. There was a throbbi ng pain that lasted about 4 hours. Largely has gone away. The patient has not had any injuries. No history of myocardial infarction, stroke, or vascular disease. Medications: He has hypertension and takes lisinopril for that. He also takes clindamycin for absce ss near his ear, diclofenac for joint pain intermittently. Allergies: HE HAS NO ALLERGIES. Social History: He is a regular cigarette smoker. He has been instructed on tobacco cessation. He does not report diabetes or dyslipidemia, any hospitalizations, any vascular surgeries, blood clots. Physical Examination: Vital Signs: Height 6 feet 1 inch, 226 pounds. HEENT: Unremarkable. Neck: No carotid bruit. Lungs: Clear. Heart: Everything is normal. I do not think there is an aortic regurgitation murmur. Abdomen: Soft. Extremities: Normal. No cyanosis, clubbing, or edema. Distal pulses normal. Vital Signs: Blood pressure this morning 152/83 on, arrival to his room 113/81. Laboratory Data: His troponins are all less than 0.02. His total cholesterol is 173, LDL 92, and HD L 28. Impression: Mr. Bridges probably is not having an acute coronary syndrome. His EKG would not sug gest it. I recommend, we do an echocardiogram and a nonnuclear stress test and we will proceed furth er with cardiac evaluation if either of those is abnormal. ANDRA/KRISTIAN Voice ID: [id number] Report ID: [id number]
[2018-05-25 12:06] VITALS: BP 134/82; TEMP 97.5
--- NOTE | 2018-05-25 12:06 | TREADMILL ---
70% H.R.: 131 85% H.R.: 159 90% H.R.: 168 100% H.R.: 187 DX: CHEST PAIN Date of Study: 05/25/2018 Ht: 6 1 Wt: 226 lb 3.2 oz Consulting Physician: THAIS MEDICATIONS: TYLENOL, XANAX, ASPIRIN, LOVENOX, PRINIVIL, LOPRESSOR, PROTNIX HISTORY: 32 YEAR OLD MALE WITH COMPLAINTS OF CHEST PAIN. MEDICAL HISTORY OF HYPERTENSION. SMOKER OF ONE PACK A DAY. PHYSICIAL EXAMINATION: RESTING B.P.: 140/86 RESTING H.R.: 59 RESTING EKG: SINUS BRADYCARDIA OTHERWISE NORMAL. PROTOCOL: SIDNEY ROUTINE EXERCISE TIME: 10:20 MAXIMUM HEART RATE: 171 91 % OF PREDICTED B.P. AT PEAK STRESS: 160/91 H.R. AT 1 MINUTE POST EXERCISE: 136 IMPRESSION: SIDNEY ROUTINE STRESS STOPPED DUE TO TARGET HEART RATE BEING REACHED PER PROTOCOL. NO SUPRAVENTRICULAR OR VENTRICULAR TACHYCARDIA NOTED. NO PREMATURE VENTRICULAR COMPLEXES NOTED. DENIED CHEST PAIN. NO ST DEPRESSION WITH STRESS. NORMAL STRESS TEST.
--- NOTE | 2018-05-25 12:16 | ECHO ---
HEIGHT: 6 ft 1 in WEIGHT: 226 lb 3.2 oz DATE OF STUDY: 05/25/[address]: Brett Loza MD 2-DIMENSIONAL: YES M.MODE: YES DOPPLER: YES COLOR FLOW: YES TDS: PORTABLE: DEFINITY: BUBBLE STUDY: DIAGNOSIS: CHEST PAIN CARDIAC HISTORY: CATHERIZATION: NO SURGERY: NO PROSTHETIC VALVE: NO PACEMAKER: NO MEASUREMENTS (cm) DIASTOLIC (NORMALS) SYSTOLIC (NORMALS) IVSd 1.0 (0.6-1.2) LA Diam 3.7 (1.9-4.0) LVEF 57% LVIDd 4.7 (3.5-5.7) LVIDs 3.3 (2.0-3.5) %FS 30% LVPWd 1.0 (0.6-1.2) Ao Diam 2.9 (2.0-3.7) 2 DIMENSIONAL ASSESSMENT: RIGHT ATRIUM: NORMAL LEFT ATRIUM: NORMAL RIGHT VENTRICLE: NORMAL LEFT VENTRICLE: NORMAL TRICUSPID VALVE: NORMAL MITRAL VALVE: NORMAL PULMONIC VALVE: NORMAL AORTIC VALVE: NORMAL PERICARDIAL EFFUSION: NONE AORTIC ROOT: NORMAL LEFT VENTRICULAR WALL MOTION: NORMAL DOPPLER/COLOR FLOW: NORMAL COMMENTS: NORMAL 2-DIMENSIONAL EHOCARDIOGRAM WITH DOPPLER. TECHNOLOGIST: NICHOLAS RIBEIRO
--- NOTE | 2018-05-25 12:34 | P.DS ---
Admission Date: 05/25/18 Discharge Date: 05/25/18 Primary Care Provider: Iraj Wilkes NP Disposition: ROUTINE DISCHARGE Discharge Condition: GOOD Reason for Admission: Chest pain rule out acute coronary syndrome Consultations: Cardiology-Iraj Wilkes NP Procedures: Cardiac exercise stress test: No stress-induced ischemia. Patient was able to reach target heart rate. No ST depression or elevation noted. Echocardiogram: Ejection fraction within normal range. Otherwise unremarkable. CT scan: FINDINGS: An aortic dissection is not seen. An aortic aneurysm is not displayed. The celiac, SMA and BARBARA are patent . 2 main right renal arteries are present. A lung consolidation is not present. A pericardial effusion is not seen. A pleural effusion is not noted. The liver,spleen, pancreas adrenals kidneys demonstrate no significant abnormality. A 19 millimeters cyst extends off of left kidney The appendix is normal. There no evidence diverticulitis. No ascites is noted. Small inguinal hernias contain fat IMPRESSION: Negative for an aortic dissection. - Problems (1) Chest pain Onset Date: 05/25/18 Current Visit: Yes Status: Acute Qualifiers: Chest pain type: unspecified Qualified Code(s): R07.9 - Chest pain, unspecified (2) Hypertension Onset Date: 05/25/18 Current Visit: Yes Status: Chronic Qualifiers: Hypertension type: essential hypertension Qualified Code(s): I10 - Essential (primary) hypertension (3) GERD (gastroesophageal reflux disease) Onset Date: 05/25/18 Current Visit: Yes Status: Suspected Qualifiers: Esophagitis presence: esophagitis presence not specified Qualified Code(s) : K21.9 - Gastro-esophageal reflux disease without esophagitis (4) Renal insufficiency Onset Date: 05/25/18 Current Visit: Yes Status: Acute (5) Dehydration Current Visit: Yes Status: Acute (6) Renal cyst, left Current Visit: Yes Status: Chronic Brief History of Present Illness: 32-year-old male present emergency room with chest pain Patient had right-sided chest pain that radiated to the arm. This was very atypical. Patient with history of hypertension. Patient was admitted for evaluation. Hospital Course: During the course of stay the patient was evaluated for chest pain. Cardiac enzymes unremarkable. EKG did not him any significant EKG changes. Patient was evaluated by cardiology. Cardiology recommended echocardiogram and exercise stress test. Echocardiogram showed normal ejection fraction. Otherwise unremarkable. Exercise stress test showed no stress-induced ischemia. Patient was able to reach target heart rate. No ST depression or elevation noted. Patient has hypertension. Medications were adjusted. Patient had elevated blood pressure upon admission. At discharge he will continue with aspirin 81 mg daily. Patient will continue with metoprolol 50 mg twice daily and lisinopril 10 mg daily. Recommendation is to maintain blood pressures less 150/80. Further adjustment can be done by his PCP. Patient had mild renal insufficiency. This is likely from dehydration. Repeat lab showed improvement. Recommendation to limit nonsteroidal anti-inflammatory use. Recommendation to recheck BMP in 1 week to monitor his progress. Lisinopril has been decreased to 10 mg daily. Patient was previously 40 mg of lisinopril daily. Patient may have underlying GERD. Patient reports a history of GERD. At discharge she will continue with Protonix 40 mg 1 pill once daily. Recommendation is for the patient follow up with GI as an outpatient to further assess. Lifestyle modification education provided. CT scan revealed left renal cyst. This is likely benign. Recommendation to recheck lab-BMP in 1-2 weeks to monitor his progress. This can be followed up as an outpatient. Vital Signs/Physical Exam: Temp Pulse Resp BP Pulse Ox 97.5 F 72 16 134/82 98 05/25/18 12:00 05/25/18 12:00 05/25/18 12:00 05/25/18 12:00 05/25/18 12:00 General: Alert, In no apparent distress, Oriented x3, Cooperative HEENT: Atraumatic Neck: Supple Respiratory: Clear to auscultation bilaterally, Normal air movement Cardiovascular: Normal pulses, Regular rate/rhythm Gastrointestinal: Normal bowel sounds, Soft and benign, Non-distended, No tenderness, No masses, No rebound, No guarding Musculoskeletal: No erythema, No tenderness, No warmth Integumentary: No tenderness/swelling, No erythema, No warmth, No cyanosis Neurological: Normal speech, Normal strength at 5/5 x4 extr, Normal tone, Normal affect Laboratory Data at Discharge: WBC 9.3 K/uL (4.3-10.9) 05/24/18 23:35 Hgb 15.0 g/dL (13.6-17.9) 05/24/18 23:35 Hct 43.3 % (39.6-49.0) 05/24/18 23:35 Plt Count 224 K/uL (152-406) 05/24/18 23:35 PT 10.5 SECONDS (9.5-12.5) 05/24/18 23:35 INR 0.89 05/24/18 23:35 APTT 21.6 SECONDS (24.3-36.9) L 05/24/18 23:35 Sodium 142 mmol/L (136-145) 05/25/18 09:37 Potassium 4.1 mmol/L (3.5-5.1) 05/25/18 09:37 BUN 13 mg/dL (7-18) 05/25/18 09:37 Creatinine 1.20 mg/dL (0.55-1.3) 05/25/18 09:37 Glucose 90 mg/dL (74-106) 05/25/18 09:37 Magnesium 2.0 mg/dL (1.8-2.4) 05/24/18 23:35 Total Bilirubin 0.4 mg/dL (0.2-1.0) 05/24/18 23:35 AST 24 U/L (15-37) 05/24/18 23:35 ALT 45 U/L (12-78) 05/24/18 23:35 Alkaline Phosphatase 87 U/L (45-117) 05/24/18 23:35 Troponin I < 0.02 ng/mL (0.0-0.045) 05/25/18 09:37 Triglycerides 266 mg/dL (<150) H 05/25/18 03:47 Cholesterol 173 mg/dL (<200) 05/25/18 03:47 HDL Cholesterol 28 mg/dL (40-60) L 05/25/18 03:47 Cholesterol/HDL Ratio 6.18 05/25/18 03:47 Lipase 264 U/L (73-393) 05/24/18 23:35 Home Medications: Aspirin [Aspirin EC 81 MG] 81 mg PO DAILY #90 tablet. 05/25/18 Lisinopril [Prinivil*] 10 mg PO DAILY #30 tab 05/25/18 Metoprolol Tartrate [Lopressor*] 50 mg PO BID #60 tab 05/25/18 Pantoprazole [Protonix Tab*] 40 mg PO DAILYAC #30 tab 05/25/18 New Medications: Aspirin [Aspirin EC 81 MG] 81 mg PO DAILY #90 tablet. Lisinopril [Prinivil*] 10 mg PO DAILY #30 tab Metoprolol Tartrate [Lopressor*] 50 mg PO BID #60 tab Pantoprazole [Protonix Tab*] 40 mg PO DAILYAC #30 tab Patient Discharge Instructions: 1. Patient will need a follow up with PCP in 1 week to follow up this hospitalization. 2. Patient presented with chest pain. Cardiac enzymes unremarkable. Patient was evaluated by cardiology. Cardiology recommended echocardiogram and exercise stress test. Echocardiogram showed normal ejection fraction. Otherwise unremarkable. Exercise stress test showed no stress-induced ischemia. 3. Patient has hypertension. Medications were adjusted due to elevated blood pressure upon admission. At discharge he will continue with aspirin 81 mg daily. Patient will also continue with metoprolol 50 mg twice daily and lisinopril 10 mg daily. Recommendation is to maintain blood pressures less 150/80. Further adjustment can be done by his PCP. Please note lisinopril was decreased to 10 mg daily. This was related to renal insufficiency upon admission. Hold medication if blood pressure less than 120 systolic. 4. Patient had mild renal insufficiency. This is likely from dehydration. Repeat lab showed improvement. Recommendation to limit nonsteroidal anti-inflammatory use. Recommendation to recheck BMP in 1 week to monitor his progress. Lisinopril has been decreased to 10 mg daily. Patient was previously 40 mg of lisinopril daily. 5. Patient may have underlying GERD. Patient reports a history of GERD. At discharge he will continue with Protonix 40 mg 1 pill once daily. Recommendation is for the patient follow up with GI as an outpatient to further assess. 6. CT scan revealed left renal cyst. This is likely benign. Recommendation to recheck lab-BMP in 1-2 weeks to monitor his progress. This can be followed up as an outpatient. Diet: AHA Activity: Ad megan Time spent managing pt's care (in minutes): 55
== END 2018-05-25 14:25 | disposition home or self-care (01) ==
LOC: ER 22:53 → ERHOLD 05-25 00:18 → 2ND 05-25 01:18
PROVIDERS: ADMIT Hospitalist; ATTEND Hospitalist
DX: R07.9 Chest pain, unspecified (principal); I10 Essential (primary) hypertension; N28.9 Disorder of kidney and ureter, unspecified; E86.0 Dehydration; N28.1 Cyst of kidney, acquired
CPT/HCPCS: 36415; 71045; 71275; 74175; 80048; 80061; 80076; 81003; 82550; 82553; 83690; 83735; 83880; 84439; 84443; 84484; 85025; 85379; 85610; 85730; 93005; 93017; 93306; 96360; 96361; 99285; G0378; J1650; J7030; Q9967

== ENCOUNTER 2019-10-25 17:00 | Emergency (ER) | payer OTHER ==
--- OUTSIDE RECORDS SUMMARY | 2019-10-25 17:02 | XMS REPORT ---
[...] End Date Status Dosage System Date Lisinopril [facility] [id number] 40 MG Orally May 14, Active 1 tablet Once a day 2017 [place] [id number] 1 MG Orally May 14, Sep 11, Active 1 tablet Continuing Twice a day 2017 2017 Month Evan Results No Known Results Summary Purpose eClinicalWorks Submission
--- OUTSIDE RECORDS SUMMARY | 2019-10-25 17:03 | XMS REPORT ---
:1985 Author Organization eClinicalWorks Care Team Providers Name Role Phone KatrinMia Provider Role Unavailable Allergies No Known Allergies Problems Problem Type Condition Code Onset Dates Condition Status Problem Hypertension I10 Active Medications No Known Medications Results No Known Results Summary Purpose eClinicalWorks Submission
--- OUTSIDE RECORDS SUMMARY | 2019-10-25 17:03 | XMS REPORT ---
:1985 Author Organization eClinicalWorks Care Team Providers Name Role Phone Mia Wilkes Provider Role Unavailable Allergies, Adverse Reactions, Alerts Substance Reaction Event Type N.K.D.A. Info Not Available Non Drug Allergy Problems Problem Type Condition Code Onset Dates Condition Status Problem Chest pain, unspecified R07.9 Active Problem Hypertension I10 Active Problem Reflux esophagitis K21.0 Active Assessment Reflux esophagitis K21.0 Active Assessment Hypertension I10 Active Medications Medication Code Code Instructions Start End Status Dosage System Date Date Chantix [facility] 14503625652 1 MG Orally May 14, Sep 11, Active 1 tablet Continuing Month Twice a day 2017 2017 Evan Lisinopril ND 98091777279 10 MG Orally June 11, Active 1 tablet Once a day [address] [facility] 58167149982 40 MG Orally May 14, Active 1 tablet Once a day 2017 Pantoprazole ND 26002533369 40 MG Orally June 11, Active 1 tablet Sodium Once a day [address] [facility] 70340082247 50 MG Orally June 11, Active 1 tablet Tartrate Twice a day 2017 with food Fenofibrate ND 64022620656 145 MG Orally June 11, Active 1 tablet Once a day 2018 with food Results No Known Results Summary Purpose eClinicalWorks Submission
--- OUTSIDE RECORDS SUMMARY | 2019-10-25 17:03 | XMS REPORT ---
:1985 Author Organization eClinicalWorks Care Team Providers Name Role Phone Mia Wilkes Provider Role Unavailable Allergies No Known Allergies Problems Problem Type Condition Code Onset Dates Condition Status Problem Cigarette nicotine dependence F17.210 Active without complication Problem Reflux esophagitis K21.0 Active Problem Pure hyperglyceridemia E78.1 Active Problem Chest pain, unspecified R07.9 Active Problem Hypertension I10 Active Medications No Known Medications Results No Known Results Summary Purpose eClinicalWorks Submission
--- OUTSIDE RECORDS SUMMARY | 2019-10-25 17:03 | XMS REPORT ---
:1985 Author Organization eClinicalWorks Care Team Providers Name Role Phone Mia Wilkes Provider Role Unavailable Allergies, Adverse Reactions, Alerts Substance Reaction Event Type N.K.D.A. Info Not Available Non Drug Allergy Problems Problem Type Condition Code Onset Dates Condition Status Assessment Reflux esophagitis K21.0 Active Assessment Pure hyperglyceridemia E78.1 Active Assessment Cigarette nicotine dependence F17.210 Active without complication Problem Cigarette nicotine dependence F17.210 Active without complication Problem Reflux esophagitis K21.0 Active Problem Pure hyperglyceridemia E78.1 Active Assessment Hypertension I10 Active Problem Chest pain, unspecified R07.9 Active Problem Hypertension I10 Active Medications Medication Code Code Instructions Start End Date Status Dosage System Date Metoprolol [facility] 39366586256 50 MG Active TAKE 1 Tartrate TABLET BY MOUTH TWICE DAILY WITH FOOD Fenofibrate [facility] 26961178451 145 MG Active TAKE 1 TABLET BY MOUTH ONE TIME DAILY WITH FOOD Lisinopril [facility] 30722141875 10 MG Active TAKE 1 TABLET BY MOUTH ONE TIME DAILY Pantoprazole [facility] 24353445935 40 MG Active TAKE 1 Sodium TABLET BY MOUTH ONE TIME DAILY Results No Known Results Summary Purpose eClinicalWorks Submission
[2019-10-25 17:38] LABS: Absolute Lymphocytes (CBC) 3.8 K/uL (0.7-4.9); Hematocrit 41.4 % (39.6-49.0); Lymphocytes % 47.9 % (15.3-44.8); MPV 9.1 fL (7.6-11.3); RBC Red Blood Cell Count 4.84 M/uL (4.33-5.43)
--- NOTE | 2019-10-25 17:41 | RAD REPORT ---
EXAM DESCRIPTION: RAD - Chest Single View - 10/25/2019 5:35 pm CLINICAL HISTORY: PALPITATIONS Chest pain. COMPARISON: Chest Single View dated 05/24/2018; CHEST PA AND LAT 2 VIEW dated 05/11/2012 FINDINGS: Portable technique limits examination quality. The lungs are grossly clear. The heart is normal in size. No displaced fractures. IMPRESSION: No acute intrathoracic process suspected.
[2019-10-25] MEDS ORDERED: METOPROLOL TAR 50 MG TAB ONE (17:56)
[2019-10-25 18:11] LABS: BUN Blood Urea Nitrogen 8 mg/dL (7-18); Bicarbonate 26 mmol/L (21-32); Glucose Level 111 mg/dL (74-106); Magnesium 2.2 mg/dL (1.8-2.4); NT PRO-BNP 36 pg/mL (<125); Potassium 3.4 mmol/L (3.5-5.1); Sodium Level 141 mmol/L (136-145); Troponin (Emerg Dept Use Only) < 0.02 ng/mL (0.0-0.045)
[2019-10-25 18:22] LABS: Anisocytosis 1+; Blood Morphology Comment NOTED (NOT SEEN); Platelet Estimate ADEQ; Poikilocytosis 1+
--- NOTE | 2019-10-25 18:31 | EDPHYS ---
Physician Documentation [facility] Name: Carson Bridges Age: 34 yrs Sex: Male : 1985 Arrival Date: 10/25/2019 Time: 17:03 Bed 24 Private MD: ED Physician Johnny Juarez HPI: 10/25 17:21 This 34 yrs old Male presents to ER via Wheelchair with complaints of Chest rn Pain, Dizziness. 17:21 The patient presents with a history of heart racing. Context: The symptoms occur at rn rest. Onset: The symptoms/episode began/occurred just prior to arrival. Duration: The patient or guardian reports a single episode, that lasted 5 minute(s). Modifying factors: The symptoms are aggravated by nothing. The symptoms are alleviated by nothing. Associated signs and symptoms: Pertinent positives: lightheadedness, Pertinent negatives: chest pain, cough, fever, SOB, syncope, unusual stressors, vertigo, vomiting. Severity of symptoms: At their worst the symptoms were moderate in the emergency department the symptoms have resolved. The patient has not experienced similar symptoms in the past. The patient has not recently seen a physician. Reports palpitations, happened while driving, at rest, resolved by time he got here, has never happened before. No fever/chest pain/sob/abd pain/vomiting/diarrhea. No famhx of early cardiac problems. 1 year ago admitted for chest pain, had neg ECHO/CT chest/stress test. Does drink energy drinks, denies drug use. . Historical: - Allergies: 17:07 No Known Allergies; aj1 - Home Meds: 17:07 lisinopril 40 mg Oral tab 1 tab once daily [Active]; Metoprolol Tartrate Oral [Active]; aj1 fenofibrate oral oral [Active]; - PMHx: 17:07 Hypertension; aj1 - Immunization history:: Flu vaccine is not up to date. - Social history:: Smoking status: Patient uses tobacco products, smokes one-half pack cigarettes per day. - Ebola Screening: : Patient denies travel to an Ebola-affected area in the 21 days before illness onset. - Family history:: not pertinent. - Hospitalizations: : No recent hospitalization is reported. ROS: 17:21 Constitutional: Negative for fever, chills, and weight loss, Eyes: Negative for injury, rn pain, redness, and discharge, ENT: Negative for injury, pain, and discharge, Neck: Negative for injury, pain, and swelling, Cardiovascular: Negative for chest pain, + palpitations Respiratory: Negative for shortness of breath, cough, wheezing, and pleuritic chest pain, Abdomen/GI: Negative for abdominal pain, nausea, vomiting, diarrhea, and constipation, MS/Extremity: Negative for injury and deformity, Skin: Negative for injury, rash, and discoloration, Neuro: Negative for headache, weakness, and seizure. Exam: 17:21 Constitutional: This is a well developed, well nourished patient who is awake, alert, rn appears anxious Head/Face: Normocephalic, atraumatic. Eyes: Pupils equal round and reactive to light, extra-ocular motions intact. Lids and lashes normal. Conjunctiva and sclera are non-icteric and not injected. Cornea within normal limits. Periorbital areas with no swelling, redness, or edema. ENT: MMM Cardiovascular: Regular rate and rhythm, no murmur. No pulse deficits. Respiratory: Clear bilateral breath sounds. No increased work of breathing, no retractions or nasal flaring. Abdomen/GI: soft, non-tender MS/ Extremity: Pulses equal, no cyanosis. Neurovascular intact. Full, normal range of motion. Equal circumference. Neuro: Awake and alert, GCS 15, oriented to person, place, time, and situation. Cranial nerves II-XII grossly intact. Motor strength 5/5 in all extremities. Sensory grossly intact. Vital Signs: 17:07 BP 167 / 94; Pulse 94; Resp 18; Temp 98.4; Pulse Ox 100% on R/A; Weight 104.33 kg (R); aj1 Height 6 ft. 1 in. (185.42 cm) (R); Pain 0/10; 17:45 BP 165 / 107; Pulse 78; Resp 14 S; Pulse Ox 100% on R/A; ca1 18:34 BP 142 / 102; Pulse 69; Resp 12 S; Pulse Ox 100% on R/A; ca1 17:07 Body Mass Index 30.34 (104.33 kg, 185.42 cm) aj1 MDM: 17:10 Patient medically screened. rn 17:50 ED course: Missed medication this AM, so metoprolol ordered given report of rn palpitations and hypertension here. . 17:51 ED course: Currently asymptomatic, awaiting rest of labs, normal d-dimer, no arrhythmia rn on ECG, if all normal and still asymptomatic and no events on monitor, will dc home with recommendation of cardiology f/u for holter and further w/u. Already had neg echo and stress test. . 18:30 Differential diagnosis: arrythmia, dehydration, stress disorder. Data reviewed: vital rn signs, nurses notes, lab test result(s), EKG, radiologic studies, plain films, and as a result, I will discharge patient. Counseling: I had a detailed discussion with the patient and/or guardian regarding: the historical points, exam findings, and any diagnostic results supporting the discharge/admit diagnosis, lab results, radiology results, the need for outpatient follow up, to return to the emergency department if symptoms worsen or persist or if there are any questions or concerns that arise at home. Response to treatment: the patient's symptoms have resolved after treatment, the patient's condition has returned to base line, the patient is now symptom free, and as a result, I will discharge patient. Special discussion: I discussed with the patient/guardian in detail that at this point there is no indication for admission to the hospital. It is understood, however, that if the symptoms persist or worsen the patient needs to return immediately for re-evaluation. Based on the history and exam findings, there is no indication for further emergent testing or inpatient evaluation. I discussed with the patient/guardian the need to see the business supervisor for further evaluation of the symptoms. I discussed with the patient/guardian the need to see the primary care provider for further evaluation of the symptoms. 10/25 17:20 Order name: Basic Metabolic Panel; Complete Time: 18:27 rn 10/25 17:20 Order name: CBC with Diff; Complete Time: 18:27 rn 10/25 17:20 Order name: Magnesium; Complete Time: 18:27 rn 10/25 17:20 Order name: NT PRO-BNP; Complete Time: 18: rn 10/25 17:20 Order name: Troponin (emerg Dept Use Only); Complete Time: 18:27 rn 10/25 17:20 Order name: TSH; Complete Time: 18: rn 10/25 17:20 Order name: XRAY Chest (1 view); Complete Time: 17:53 rn 10/25 17:20 Order name: EKG; Complete Time: 17:21 rn 10/25 17:20 Order name: Cardiac monitoring; Complete Time: 17:26 rn 10/25 17:20 Order name: EKG - Nurse/Tech; Complete Time: 17:26 rn 10/25 17:20 Order name: D-Dimer; Complete Time: 17:49 rn 10/25 17:41 Order name: Manual Differential; Complete Time: 18:27 EDMS 10/25 17:20 Order name: IV Saline Lock; Complete Time: 17:26 rn 10/25 17:20 Order name: Labs collected and sent; Complete Time: 17:26 rn 10/25 17:20 Order name: O2 Per Protocol; Complete Time: 17:26 rn 10/25 17:20 Order name: O2 Sat Monitoring; Complete Time: 17:26 rn Administered Medications: 17:57 Drug: Metoprolol 25 mg Route: PO; ca1 18:35 Follow up: Response: No adverse reaction; Blood pressure is lowered ca1 17:58 Drug: Metoprolol 25 mg Route: PO; ca1 18:35 Follow up: Response: No adverse reaction; Blood pressure is lowered ca1 Disposition: 10/25/19 18:30 Discharged to Home. Impression: Palpitations. - Condition is Stable. - Discharge Instructions: Holter Monitoring, Palpitations. - Medication Reconciliation Form, Thank You Letter, Antibiotic Education, Prescription Opioid Use form. - Follow up: Edgar Burgess; When: As needed; Reason: Recheck today's complaints, Re-evaluation by your physician. - Problem is new. - Symptoms are resolved. Signatures: Dispatcher [employer] Ashley Vásquez RN RN aj1 Johnny Juarez MD MD rn AcobWhit RN RN ca1 Corrections: (The following items were deleted from the chart) 18:45 18:30 10/25/2019 18:30 Discharged to Home. Impression: Palpitations. Condition is ca1 Stable. Discharge Instructions: Holter Monitoring, Palpitations. Forms are Medication Reconciliation Form, Thank You Letter, Antibiotic Education, Prescription Opioid Use. Follow up: Edgar Burgess; When: As needed; Reason: Recheck today's complaints, Re-evaluation by your physician. Problem is new. Symptoms are resolved. rn
--- NOTE | 2019-10-25 18:31 | ER ---
Nurse's Notes [facility] Name: Carson Bridges Age: 34 yrs Sex: Male : 1985 Arrival Date: 10/25/2019 Time: 17:03 Bed 24 Private MD: Diagnosis: Palpitations Presentation: 10/25 17:04 Presenting complaint: Patient states: "I was driving home from work and my legs started aj1 tingling and I started to feel like I was going to pass out and my chest started pounding" Patient states that he now feels shaky and like he has a knot in his stomach but the palpitations have resolved at this time. Denies chest pain. Transition of care: patient was not received from another setting of care. Onset of symptoms was October 25, 2019. Risk Assessment: Do you want to hurt yourself or someone else? Patient reports no desire to harm self or others. Initial Sepsis Screen: Does the patient meet any 2 criteria? HR > 90 bpm. Does the patient have a suspected source of infection? No. Patient's initial sepsis screen is negative. Care prior to arrival: None. 17:04 Method Of Arrival: Wheelchair aj1 17:04 Acuity: GALLO 3 aj1 Triage Assessment: 17:07 General: Appears in no apparent distress. uncomfortable, Behavior is calm, cooperative, aj1 appropriate for age. Pain: Denies pain. Neuro: Level of Consciousness is awake, alert, obeys commands. Cardiovascular: Patient's skin is warm and dry. Respiratory: Airway is patent Respiratory effort is even, unlabored, Respiratory pattern is regular, symmetrical. Historical: - Allergies: 17:07 No Known Allergies; aj1 - Home Meds: 17:07 lisinopril 40 mg Oral tab 1 tab once daily [Active]; Metoprolol Tartrate Oral [Active]; aj1 fenofibrate oral oral [Active]; - PMHx: 17:07 Hypertension; aj1 - Immunization history:: Flu vaccine is not up to date. - Social history:: Smoking status: Patient uses tobacco products, smokes one-half pack cigarettes per day. - Ebola Screening: : Patient denies travel to an Ebola-affected area in the 21 days before illness onset. - Family history:: not pertinent. - Hospitalizations: : No recent hospitalization is reported. Screenin:19 Abuse screen: Denies threats or abuse. Denies injuries from another. Nutritional ca1 screening: No deficits noted. Tuberculosis screening: No symptoms or risk factors identified. Fall Risk IV access (20 points). Assessment: 17:10 Reassessment: Dr. Juarez at bedside. ca1 17:19 General: Appears in no apparent distress. comfortable, Behavior is calm, cooperative, ca1 appropriate for age. Pain: Denies pain. Pain does not radiate. Pain began Pt states, "there is really no pain, I just felt my heart pounding and racing, I felt dizzy, and my hands numb and tingly. Right now, I'm okay and don't feel it anymore". Neuro: Level of Consciousness is awake, alert, obeys commands, Oriented to person, place, time, situation, Appropriate for age Reports dizziness. Cardiovascular: Heart tones S1 S2 present Capillary refill < 3 seconds Patient's skin is warm and dry. Pulses are all present. Rhythm is sinus rhythm. Respiratory: Airway is patent Respiratory effort is even, unlabored, Respiratory pattern is regular, symmetrical. GI: Abdomen is round non-distended, Bowel sounds present X 4 quads. Abd is soft and non tender X 4 quads. : No deficits noted. No signs and/or symptoms were reported regarding the genitourinary system. EENT: No deficits noted. No signs and/or symptoms were reported regarding the EENT system. Derm: Skin is intact, is healthy with good turgor, Skin is pink, warm \\T\\ dry. Musculoskeletal: Circulation, motion, and sensation intact. Capillary refill < 3 seconds, Range of motion: intact in all extremities. 18:34 Reassessment: Patient appears in no apparent distress at this time. Patient is alert, ca1 oriented x 3, equal unlabored respirations, skin warm/dry/pink. Vital Signs: 17:07 BP 167 / 94; Pulse 94; Resp 18; Temp 98.4; Pulse Ox 100% on R/A; Weight 104.33 kg (R); aj1 Height 6 ft. 1 in. (185.42 cm) (R); Pain 0/10; 17:45 BP 165 / 107; Pulse 78; Resp 14 S; Pulse Ox 100% on R/A; ca1 18:34 BP 142 / 102; Pulse 69; Resp 12 S; Pulse Ox 100% on R/A; ca1 17:07 Body Mass Index 30.34 (104.33 kg, 185.42 cm) aj1 ED Course: 17:03 Patient arrived in ED. ag5 17:06 Triage completed. aj1 17:07 Arm band placed on Patient placed in an exam room. aj1 17:10 Johnny Juarez MD is Attending Physician. rn 17:16 Whit Gamboa RN is Primary Nurse. ca1 17:19 Patient has correct armband on for positive identification. Placed in gown. Bed in low ca1 position. Call light in reach. Side rails up X 1. air sampling and monitoring on. Pulse ox on. NIBP on. Warm blanket given. 17:19 No provider procedures requiring assistance completed. Initial lab(s) drawn, by ED ca1 staff, sent to lab. Inserted saline lock: 20 gauge in right antecubital area, using aseptic technique. ,using aseptic technique. By GER Diallo Blood collected. Patient maintains SpO2 saturation greater than 95% on room air. 17:36 XRAY Chest (1 view) In Process Unspecified. EDMS 18:30 Edgar Burgess MD is Referral Physician. rn 18:37 IV discontinued, intact, bleeding controlled, No redness/swelling at site. Pressure ca1 dressing applied. Administered Medications: 17:57 Drug: Metoprolol 25 mg Route: PO; ca1 18:35 Follow up: Response: No adverse reaction; Blood pressure is lowered ca1 17:58 Drug: Metoprolol 25 mg Route: PO; ca1 18:35 Follow up: Response: No adverse reaction; Blood pressure is lowered ca1 Outcome: 18:30 Discharge ordered by . rn 18:44 Discharged to home ambulatory, with family. ca1 18:44 Condition: stable 18:44 Discharge instructions given to patient, Instructed on discharge instructions, follow up and referral plans. Demonstrated understanding of instructions, follow-up care. 18:45 Patient left the ED. ca1 Signatures: Dispatcher [employer] EDMS Ashley Epps RN RN aj1 Johnny Juarez MD MD rn Acob, Cheryl, RN RN ca1 Castillo Mcallister ag5 Corrections: (The following items were deleted from the chart) 17:24 17:15 Reassessment: Dr. Juarez at [place] [id number]
[2019-10-25 19:01] VITALS: TEMP 98.4; O2SAT 100
[2019-10-25 19:03] VITALS: BP 142/102
--- NOTE | 2019-10-26 05:29 | EKG ---
Test Date: 2019-10-25 Test Time: 17:13:52 Fire Safety Director: ADELINA MEASUREMENT RESULTS: Intervals: Rate: 92 IN: 142 QRSD: 114 QT: 388 QTc: 479 [place]: P: 49 IN: 142 QRS: 75 T: 51 INTERPRETIVE STATEMENTS: Normal sinus rhythm Incomplete right bundle branch block Borderline ECG Compared to ECG 05/24/2018 23:28:12 Sinus bradycardia no longer present Electronically Signed On 10-26-19 05:28:40 CRIME SCENE ANALYST by Edgar Burgess
== END 2019-10-25 18:45 | disposition home or self-care (01) ==
LOC: ER 17:00
DX: R00.2 Palpitations (principal); I10 Essential (primary) hypertension; F17.210 Nicotine dependence, cigarettes, uncomplicated
CPT/HCPCS: 36415; 71045; 80048; 83735; 83880; 84443; 84484; 85025; 85379; 93005; 99285

== ENCOUNTER 2022-08-13 11:59 | Emergency (ER) | payer BC, OTHER ==
--- OUTSIDE RECORDS SUMMARY | 2022-08-13 12:32 | XMS REPORT | Continuity of Care Document ---
:1985 Author Organization [facility] t Address [address] [place] [address] Care Team Providers Name Role Phone Katrin Arlin Attending Clinician Unavailable Problems This patient has no known problems. Allergies, Adverse Reactions, Alerts This patient has no known allergies or adverse reactions. Medications Ordered Filled Start Stop Current Ordering Indication Dosage Frequency Signature Comments Components Source Medication Medication Date Date Medication? Clinician (SIG) Name Name Metoprolol Metoprolol Yes Arlin TAKE 1 Common Tartrate Tartrate [place] TABLET BY S pirit MOUTH - [facility] TWICE [facility] DAILY [facility] Lisinopril Lisinopril Yes Arlin TAKE 1 Common [place] TABLET BY Spirit MOUTH ONE - [facility] TIME DAILY [facility] Fenofibrate Fenofibrate Yes Arlin TAKE 1 Common [place] TABLET BY Spirit MOUTH ONE - [facility] TIME DAILY [facility] Procedures This patient has no known procedures. Encounters Start End Encounter Admission Attending Care Care Encounter Source Date/Time Date/Time Type Type Clinicians Facility Department ID 2022-05-[address] [facility] [id number] Common 08:13:01 Arlin [facility] 2021-12-[address] [facility] [id number] Common 14:36:42 Arlin [facility] 2021-12-[address] [facility] [id number] Common 14:32:21 Arlin [facility] 2021-12-12 Outpatient [place], STLMLC STLMLC [id number] Common 14:30:58 Arlin [id number] [facility] 2021-12-12 Outpatient [place], STLMLC STLMLC [id number] Common 13:14:00 Arlin [id number] [facility] 2022-05-31 2022-05-31 ambulatory STLMLC STLMLC [id number] Common 00:00:00 00:00:00 [facility] 2022-05-15 2022-05-15 ambulatory STLMLC STLMLC [id number] Common 00:00:00 00:00:00 [facility] 2021-11-23 2021-11-23 ambulatory STLMLC STLMLC [id number] Common 00:00:00 00:00:00 [facility] 2021-06-28 2021-06-28 Outpatient STLMLC STLMLC [id number] Common 00:00:00 00:00:00 [facility] 2021-04-27 2021-04-27 Outpatient STLMLC STLMLC [id number] Common 00:00:00 00:00:00 [facility] 2021-03-02 2021-03-02 Outpatient STLMLC STLMLC [id number] Common 00:00:00 00:00:00 [facility] 2020-10-27 2020-10-27 Outpatient STLMLC STLMLC [id number] Common 00:00:00 00:00:00 [facility] 2020-04-28 2020-04-28 [facility] [id number] Common 08:40:00 08:40:00 [facility] [address] [facility] 2019-10-29 2019-10-29 [facility] [id number] Common 08:20:00 08:20:00 [facility] [address] [facility] 2019-05-10 2019-05-10 [facility] [id number] Common 14:19:00 14:19:[address] [facility] 2019-04-30 2019-04-30 [facility] [id number] Common 09:00:00 09:00:00 t [facility] [address] [facility] 2018-06-11 2018-06-11 Outpatient [facility] [id number] Common 15:00:00 15:00:00 t [facility] [address] [facility] 2018-06-05 2018-06-05 Outpatient [facility] [id number] Common 09:10:00 09:10:00 t [facility] [address] [facility] 2018-05-14 2018-05-14 Outpatient Mamta Olearyt [id number] Common 11:00:00 11:00:00 t [facility] [address] [facility] Results This patient has no known results.
--- NOTE | 2022-08-13 13:02 | RAD REPORT ---
EXAM DESCRIPTION: CT - Head Brain Wo Cont - 08/13/2022 12:53 pm CLINICAL HISTORY: Numbness COMPARISON: None. TECHNIQUE: Computed axial tomography of the head was obtained. IV contrast was not requested. All CT scans are performed using dose optimization technique as appropriate and may include automated exposure control or mA/KV adjustment according to patient size. FINDINGS: An intracranial bleed is not seen . The ventricles are normal in caliber. No significant hypodense areas within the brain visualized No extra-axial fluid collection is noted. Fluid within the sinuses/ mastoids is not seen. Mucus retention cyst left maxillary sinus IMPRESSION: No acute intracranial abnormality is seen. If patient's symptoms persist MRI of the bra in would be recommended.
[2022-08-13 13:03] LABS: Absolute Lymphocytes (CBC) 1.7 K/uL (0.7-4.9); Lymphocytes % 17.2 % (15.3-44.8); MPV 8.1 fL (7.6-11.3); RBC Red Blood Cell Count 5.05 M/uL (4.33-5.43)
[2022-08-13] MEDS ORDERED: ASPIRIN 81 MG CHEWABLE TABLET ONE (13:03)
[2022-08-13] MEDS ORDERED: ATORVASTATIN 20 MG TAB ONE (13:03)
[2022-08-13] MEDS ORDERED: CLOPIDOGREL 75 MG TABLET ONE (13:03)
[2022-08-13 13:08] LABS: Protime INR 1.04
--- NOTE | 2022-08-13 13:22 | RAD REPORT ---
EXAM DESCRIPTION: CTHead angio08/13/2022 1:01 pm CLINICAL HISTORY: Numbness COMPARISON: None TECHNIQUE: CT angiogram of the head was obtained. 3D MIPS reconstruction performed. All CT scans are performed using dose optimization technique as appropriate and may include automated exposure control or mA/KV adjustment according to patient size. FINDINGS: The basilar, internal carotid, anterior cerebral, middle cerebral and posterior cerebral a rteries are normal caliber. An aneurysm is not seen. A significant stenosis is not noted. origin right posterior cerebral artery IMPRESSION: No significant abnormality is displayed
--- NOTE | 2022-08-13 13:23 | RAD REPORT ---
EXAM DESCRIPTION: Juli Angio08/13/2022 1:01 pm CLINICAL HISTORY: Numbness COMPARISON: None TECHNIQUE: 50 cc Isovue 370 was administered intravenously. 3D MIP reconstruction performed All CT scans are performed using dose optimization technique as appropriate and may include automated exposure control or mA/KV adjustment according to patient size. FINDINGS: The common carotid, internal carotid and external carotid arteries bilaterally are normal caliber. No plaque noted. Vertebral arteries are codominant. No significant stenosis. No dissection seen IMPRESSION: No acute abnormality displayed NASCET criteria used. Mild 0-49% stenosis Moderate 50-69% stenosis Severe 70-99% stenosis
[2022-08-13 13:24] LABS: Albumin 4.4 g/dL (3.4-5.0); Bilirubin Direct 0.1 mg/dL (0-0.2); Bilirubin Total 0.5 mg/dL (0.2-1.0); Magnesium 1.9 mg/dL (1.8-2.4); Potassium 3.7 mmol/L (3.5-5.1); Protein, Total 8.3 g/dL (6.4-8.2); Troponin High Sensitivity 4.8 pg/mL (<58.9)
--- NOTE | 2022-08-13 13:40 | RAD REPORT ---
EXAM DESCRIPTION: Augustina Single View08/13/2022 1:11 pm CLINICAL HISTORY: Chest pain COMPARISON: 2018 none FINDINGS: The lungs appear clear of acute infiltrate. The heart is normal size IMPRESSION: No acute abnormalities displayed
[2022-08-13] MEDS ORDERED: FOLIC ACID 5 MG/ML VIAL ONE (13:56)
[2022-08-13] MEDS ORDERED: NA CHLORIDE 0.9% 1,000 ML ONE (16:36)
--- NOTE | 2022-08-13 16:52 | RAD REPORT ---
EXAM DESCRIPTION: MRI - Brain Wo Cont - 08/13/2022 4:13 pm CLINICAL HISTORY: Numbness COMPARISON: Head CT August 13, 2022 TECHNIQUE: Axial, sagittal, and coronal magnetic resonance images of the brain were obtained. FINDINGS: No significant abnormal signal within the brain. Diffusion-weighted/ADC mapping does not reveal evidence of acute infarction. The ventricles are normal caliber. An extra-axial fluid collection is not noted. Fluid within the sinuses/mastoids is not seen. Mucus retention cyst maxillary sinuses IMPRESSION: No acute intracranial abnormality noted
--- NOTE | 2022-08-13 17:19 | ER ---
Nurse's Notes [facility] Name: Carson Bridges Age: 37 yrs Sex: Male : 1985 Arrival Date: 08/13/2022 Time: 12:05 Bed 23 Private MD: Arlin Wilkes Diagnosis: Paresthesia of skin;Essential (primary) hypertension Presentation: 08/13 12:20 Acuity: GALLO 2 aa5 12:20 Chief complaint: Patient states: "I was just sitting at my desk when I started feeling aa5 tingling on my left shoulder and it went down my arm and down my left leg pain and I took my blood pressure and it was 181/111". Pt c/o tingling to left arm and left leg. Pt also reports juliann toe tingling. 12:20 Coronavirus screen: At this time, the client does not indicate any symptoms associated aa5 with coronavirus-19. Ebola Screen: Patient denies travel to an Ebola-affected area in the 21 days before illness onset. Initial Sepsis Screen: Does the patient meet any 2 criteria? No. Patient's initial sepsis screen is negative. Does the patient have a suspected source of infection? No. Patient's initial sepsis screen is negative. Risk Assessment: Do you want to hurt yourself or someone else? Patient reports no desire to harm self or others. Onset of symptoms was August 13, 2022 at 10:30. 12:20 Method Of Arrival: Ambulatory aa5 Triage Assessment: 17:36 General: Appears in no apparent distress. Behavior is calm, cooperative, appropriate jh5 for age. Historical: - Allergies: 12:20 No Known Allergies; aa5 - Home Meds: 12:20 fenofibrate Oral [Active]; aa5 12:30 lisinopril 20 mg oral tab once daily [Active]; metoprolol tartrate 50 mg oral tab 2 aa5 times per day [Active]; - PMHx: 12:20 Hypertension; aa5 - Immunization history:: Adult Immunizations unknown. - Social history:: Smoking status: Reported history of juuling and/or vaping. Screenin:34 Abuse screen: Denies threats or abuse. Denies injuries from another. Nutritional jh5 screening: No deficits noted. Tuberculosis screening: No symptoms or risk factors identified. Fall Risk None identified. Assessment: 12:32 Pain: Denies pain. Neuro: Level of Consciousness is awake, alert, obeys commands, jh5 Oriented to person, place, time, situation, Appropriate for age Field Mechanic are equal bilaterally Moves all extremities. Gait is steady, Speech is normal, Facial symmetry appears normal, Tingling in left arm and left leg. Cardiovascular: Capillary refill < 3 seconds Clubbing of nail beds is absent JVD is absent Patient's skin is warm and dry. Respiratory: Airway is patent Trachea midline Respiratory effort is even, unlabored, Respiratory pattern is regular, symmetrical. Vital Signs: 12:20 BP 190 / 101; Pulse 66; Resp 18 S; Temp 98.0(TE); Pulse Ox 98% on R/A; aa5 13:13 BP 170 / 98; Pulse 76; Resp 16; Pulse Ox 98% ; jh5 14:35 BP 156 / 101; Pulse 61; Resp 16; Pulse Ox 100% ; jh5 NIH Stroke Scale Scores: 12:34 NIHSS Score: 0 pm1 ED Course: 12:05 Patient arrived in ED. am2 12:05 Matthew Escoto MD is Private Physician. am2 12:05 Arlin Wilkes FNP-C is Private Physician. am2 12:15 Eliseo Bourgeois NP is [facility]. pm1 12:15 Brett Loza MD is Attending Physician. pm1 12:20 Triage completed. aa5 12:20 Arm band placed on. aa5 12:34 Kacy De Los Santos, GER is Primary Nurse. jh5 12:34 Patient has correct armband on for positive identification. Bed in low position. Call [facility] light in reach. 12:54 CT Head Brain wo Cont In Process Unspecified. EDMS 13:04 CT Head Angio In Process Unspecified. EDMS 13:04 CT Neck Angio In Process Unspecified. EDMS 13:10 XRAY Chest (1 view) In Process Unspecified. EDMS 13:12 Inserted saline lock: 20 gauge in right antecubital area, using aseptic technique. jh5 16:15 MRI - Brain Wo Cont In Process Unspecified. EDMS 17:19 César White MD is Referral Physician. pm1 17:36 No provider procedures requiring assistance completed. IV discontinued, intact, jh5 bleeding controlled, No redness/swelling at site. Pressure dressing applied. Administered Medications: 12:45 CANCELLED (Physician Discretion): Aspirin 325 mg PO once pm1 13:12 Drug: Aspirin 81 mg Route: PO; [facility] 13:12 Drug: PlaVIX (clopidogrel) 75 mg Route: PO; 5 13:12 Drug: Atorvastatin 80 mg Route: PO; [facility] 14:06 Drug: foLIC Acid 1 mg Route: IVPB; Site: right antecubital; [facility] 16:38 Drug: NS 0.9% 1000 ml Route: IV; Rate: 1000 ml; Site: right antecubital; [facility] Medication: 17:36 VIS not applicable for this client. [facility] Outcome: 17:19 Discharge ordered by MD. pm1 17:37 Discharged to home ambulatory. [facility] 17:37 Condition: good 17:37 Discharge instructions given to patient, Instructed on discharge instructions, follow up and referral plans. medication usage, safety practices, Demonstrated understanding of instructions, follow-up care, medications, Prescriptions given X 3. 17:37 Patient left the ED. [facility] NIH Stroke Scale - NIH Stroke Score Date: 08/13/2022 Time: 12:34 Total Score = 0 1a. Level of Consciousness (LOC) - 0(Alert) 1b. Level of Consciousness (LOC) (Month \\T\\ Age) - 0(Both) 1c. LOC Commands (Open \\T\\ Closes Eyes/Fashion Journalist) - 0(Both) 2. Best Gaze (Lateral Gaze Paresis) - 0(Normal) 3. Visual Field Loss - 0(No visual loss) 4. Facial Palsy - 0(Normal) 5a. Left Arm: Motor (10-second hold) - 0(No drift) 5b. Right Arm: Motor (10-second hold) - 0(No drift) 6a. Left Leg: Motor (5-second hold - always test supine) - 0(No drift) 6b. Right Leg: Motor (5-second hold - always test supine) - 0(No drift) 7. Limb Ataxia (finger/nose \\T\\ heel/villarreal - test with eyes open) - 0(Absent) 8. Sensory Loss (pinprick arms/legs/face) - 0(Normal) 9. Best Language: Aphasia (description/naming/reading) - 0(No aphasia) 10. Dysarthria (speech clarity - read or repeat words) - 0(Normal) 11. Extinction and Inattention (visual/tactile/auditory/spatial/personal) - 0(No abnormality) Initials: pm1 Signatures: Dispatcher [employer] EDKirsty Salomon, RN RN aa5 Eliseo Bourgeois NP ANIMAL CONTROL SUPERVISOR pm1 Destini Morales am2 Kacy De Los Santos RN RN jh5 Corrections: (The following items were deleted from the chart) 12:25 12:20 Chief complaint: Patient states: "I was just sitting at my desk when I aa5 started feeling tingling on my left shoulder and it went down my arm and down my left leg pain". Pt c/o tingling to left arm and left leg. aa5 12:28 12:20 Chief complaint: Patient states: "I was just sitting at my desk when I aa5 started feeling tingling on my left shoulder and it went down my arm and down my left leg pain". Pt c/o tingling to left arm and left leg. Pt also reports juliann toe tingling aa5 : 12:20 Home Meds: lisinopril 40 mg Oral tab 1 tab once daily; aa5 aa5 12: 12:20 Home Meds: Metoprolol Tartrate Oral; aa5 5
--- NOTE | 2022-08-13 17:20 | EDPHYS ---
Physician Documentation [facility] Name: Carson Bridges Age: 37 yrs Sex: Male : 1985 Arrival Date: 08/13/2022 Time: 12:05 Bed 23 Private MD: Arlin Wilkes ED Physician Brett Loza HPI: 08/13 12:34 This 37 yrs old Male presents to ER via Ambulatory with complaints of Arm Problem - pm1 tingling, Shoulder Pain, High Blood Pressure. 12:34 The patient presents to the emergency department with tingling to bilateral toes and pm1 left finger tips, left shoulder, and behind left knee. High blood pressure - patient with history of poorly controlled blood pressure. Onset: The symptoms/episode began/occurred today, at 10:30. Context: occurred at work, occurred while the patient was sitting. Associated signs and symptoms: Pertinent negatives: headache, paresthesias, weakness, chest pain, shortness of breath. Severity of symptoms: in the emergency department the symptoms are unchanged. Patient's baseline: Neuro: alert and fully oriented, Motor: no deficits, Ambulation: walks without assistance, Speech: normal. The patient has experienced a previous episode, similar symptoms in the past with hyperventilation episode. The patient has been recently seen by a physician: with different complaint(s), blood pressure management, lisinopril increased from 10 to 20 mg daily. Historical: - Allergies: 12:20 No Known Allergies; aa5 - Home Meds: 12:20 fenofibrate Oral [Active]; aa5 12:30 lisinopril 20 mg oral tab once daily [Active]; metoprolol tartrate 50 mg oral tab 2 aa5 times per day [Active]; - PMHx: 12:20 Hypertension; aa5 - Immunization history:: Adult Immunizations unknown. - Social history:: Smoking status: Reported history of juuling and/or vaping. ROS: 12:34 Constitutional: Negative for fever, chills, and weight loss, Cardiovascular: Negative pm1 for chest pain, palpitations, and edema, Respiratory: Negative for shortness of breath, cough, wheezing, and pleuritic chest pain, Abdomen/GI: Negative for abdominal pain, nausea, vomiting, diarrhea, and constipation. 12:34 : Negative for injury, bleeding, discharge, and swelling, MS/Extremity: Negative for injury and deformity, Skin: Negative for injury, rash, and discoloration. 12:34 Back: Positive for low back pain that resolved earlier today. Reports history of self diagnosed slipped disk. 12:34 Neuro: Positive for tingling to bilateral toes, behind left knee, left shoulder, and left finger tips, Negative for dizziness, gait disturbance, headache, numbness, visual changes, weakness. 12:34 All other systems are negative. Exam: 12:34 Constitutional: This is a well developed, well nourished patient who is awake, alert, pm1 and in no acute distress. Head/Face: Normocephalic, atraumatic. 12:34 Skin: Warm, dry with normal turgor. Normal color with no rashes, no lesions, and no evidence of cellulitis. MS/ Extremity: Pulses equal, no cyanosis. Neurovascular intact. Full, normal range of motion. 12:34 Eyes: Exam is negative for acute changes, Periorbital structures: appear normal, Pupils: no acute changes, Extraocular movements: no acute changes, Conjunctiva: no acute changes, no injection. 12:34 ENT: Exam is negative for acute changes, Nose: no acute changes, Mouth: no acute changes, Lips: normal, moist, Oral mucosa: normal, pink and intact, moist. 12:34 Cardiovascular: Exam negative for acute changes, Rate: normal, Rhythm: regular, Pulses: no pulse deficits are appreciated. 12:34 Respiratory: Exam negative for acute changes, respiratory distress, shortness of breath, Breath sounds: are clear throughout. 12:34 Abdomen/GI: Inspection: abdomen appears normal, Palpation: abdomen is soft and non-tender, in all quadrants. 12:34 Back: Exam negative for acute changes, pain, is absent, normal spinal alignment noted, muscle spasm, is not present. 12:34 Neuro: Exam negative for acute changes, Orientation: is normal, Mentation: is normal, Cranial nerves: CN II- XII are normal as tested, Cerebellar function: normal finger to nose testing, heel to villarreal testing is normal, Motor: is normal, Sensation: no obvious gross deficits, Gait: is steady, at a normal pace, without difficulty, can walk on tippy toes and heels without difficulty. Vital Signs: 12:20 BP 190 / 101; Pulse 66; Resp 18 S; Temp 98.0(TE); Pulse Ox 98% on R/A; aa5 13:13 BP 170 / 98; Pulse 76; Resp 16; Pulse Ox 98% ; jh5 14:35 BP 156 / 101; Pulse 61; Resp 16; Pulse Ox 100% ; jh5 NIH Stroke Scale Scores: 12:34 NIHSS Score: 0 pm1 MDM: 12:31 Patient medically screened. pm1 12:52 Physician consultation: César White MD regarding consult, patient's condition, pm1 would like further tests performed, CT head and neck angio since we do not have MRI, aspirin and plavix, folic acid and statin. No TNK since NIHSS score is zero. 17:18 Data reviewed: vital signs. Data interpreted: Pulse oximetry: on room air is 100 %. pm1 Interpretation: normal. Counseling: I had a detailed discussion with the patient and/or guardian regarding: the historical points, exam findings, and any diagnostic results supporting the discharge/admit diagnosis, lab results, radiology results, the need for outpatient follow up, to return to the emergency department if symptoms worsen or persist or if there are any questions or concerns that arise at home. 08/13 12:33 Order name: Basic Metabolic Panel; Complete Time: 14:04 pm08/13 12:33 Order name: CBC with Diff; Complete Time: 14:04 pm08/13 12:33 Order name: LFT's; Complete Time: 14:04 pm08/13 12:33 Order name: Magnesium; Complete Time: 14:04 pm08/13 12:33 Order name: NT PRO-BNP; Complete Time: 14:04 pm08/13 12:33 Order name: PT-INR; Complete Time: 14:04 pm08/13 12:33 Order name: CT Head Brain wo Cont; Complete Time: 13:03 pm08/13 12:33 Order name: Troponin HS; Complete Time: 14:04 pm08/13 12:33 Order name: XRAY Chest (1 view); Complete Time: 14:04 pm08/13 12:52 Order name: CT Head Angio; Complete Time: 14:04 pm08/13 12:52 Order name: CT Neck Angio; Complete Time: 14:04 pm08/13 14:43 Order name: CREATININE WHOLE BLOOD; Complete Time: 16:32 EDMS 08/13 15:08 Order name: MRI - Brain Wo Cont; Complete Time: 17:01 pm1 08/13 12:33 Order name: Cardiac monitoring; Complete Time: 12:52 pm1 08/13 12:33 Order name: EKG - Nurse/Tech; Complete Time: 12:52 pm1 08/13 12:33 Order name: IV Saline Lock; Complete Time: 12:52 pm1 08/13 12:33 Order name: Labs collected and sent; Complete Time: 12:52 pm1 08/13 12:33 Order name: O2 Per Protocol; Complete Time: 12:52 pm1 08/13 12:33 Order name: O2 Sat Monitoring; Complete Time: 12:52 pm1 Administered Medications: 12:45 CANCELLED (Physician Discretion): Aspirin 325 mg PO once pm1 13:12 Drug: Aspirin 81 mg Route: PO; [facility] 13:12 Drug: PlaVIX (clopidogrel) 75 mg Route: PO; [facility] 13:12 Drug: Atorvastatin 80 mg Route: PO; [facility] 14:06 Drug: foLIC Acid 1 mg Route: IVPB; Site: right antecubital; [facility] 16:38 Drug: NS 0.9% 1000 ml Route: IV; Rate: 1000 ml; Site: right antecubital; [facility] Disposition Summary: 08/13/22 17:19 Discharge Ordered Location: Home pm1 Problem: new pm1 Symptoms: have improved pm1 Condition: Stable pm1 Diagnosis - Paresthesia of skin pm1 - Essential (primary) hypertension pm1 Followup: pm1 - With: Emergency Department - When: As needed - Reason: Worsening of condition Followup: pm1 - With: Private Physician - When: 2 - 3 days - Reason: Recheck today's complaints, Continuance of care, Re-evaluation by your physician Followup: pm1 - With: César White MD - When: 2 - 3 days - Reason: Recheck today's complaints, Continuance of care, Re-evaluation by your physician Discharge Instructions: - Discharge Summary Sheet pm1 - Hypertension, Adult pm1 - Paresthesia pm1 - How to Take Your Blood Pressure, [id number] pm1 - Aspirin and Your Heart pm1 - DASH Eating Plan pm1 - Managing Your Hypertension pm1 Forms: - Medication Reconciliation Form pm1 - Thank You Letter pm1 - Antibiotic Education pm1 - Prescription Opioid Use pm1 Prescriptions: - Lipitor 40 mg Oral tablet - take 1 tablet by ORAL route once daily; 20 tablet; Refills: 0, Product pm1 Selection Permitted - Plavix 75 mg Oral Tablet - take 1 tablet by ORAL route once daily; 20 tablet; Refills: 0, Product pm1 Selection Permitted - Folic Acid 1 mg Oral Tablet - take 1 tablet by ORAL route once daily; 30 tablet; Refills: 0, Product pm1 Selection Permitted NIH Stroke Scale - NIH Stroke Score Date: 08/13/2022 Time: 12:34 Total Score = 0 1a. Level of Consciousness (LOC) - 0(Alert) 1b. Level of Consciousness (LOC) (Month \T\ Age) - 0(Both) 1c. LOC Commands (Open \T\ Closes Eyes/Marketing Information Analyst) - 0(Both) 2. Best Gaze (Lateral Gaze Paresis) - 0(Normal) 3. Visual Field Loss - 0(No visual loss) 4. Facial Palsy - 0(Normal) 5a. Left Arm: Motor (10-second hold) - 0(No drift) 5b. Right Arm: Motor (10-second hold) - 0(No drift) 6a. Left Leg: Motor (5-second hold - always test supine) - 0(No drift) 6b. Right Leg: Motor (5-second hold - always test supine) - 0(No drift) 7. Limb Ataxia (finger/nose \T\ heel/villarreal - test with eyes open) - 0(Absent) 8. Sensory Loss (pinprick arms/legs/face) - 0(Normal) 9. Best Language: Aphasia (description/naming/reading) - 0(No aphasia) 10. Dysarthria (speech clarity - read or repeat words) - 0(Normal) 11. Extinction and Inattention (visual/tactile/auditory/spatial/personal) - 0(No abnormality) Initials: pm1 Signatures: Dispatcher [employer] Kirsty Cota RN RN aa5 Eliseo Bourgeois NP KILN DOOR REPAIRER pm1 Kacy De oLs Santos RN RN jh5 Corrections: (The following items were deleted from the chart) 12:30 12:20 Home Meds: lisinopril 40 mg Oral tab 1 tab once daily; tonia5 aa5 12:30 12:20 Home Meds: Metoprolol Tartrate Oral; aa5 aa5 12:45 12:33 Aspirin 325 mg PO once ordered. pm1 pm1
[2022-08-15 21:52] VITALS: TEMP 98
[2022-08-15 21:55] VITALS: BP 156/101; O2SAT 100
== END 2022-08-13 17:37 | disposition home or self-care (01) ==
LOC: ER 11:59
DX: R20.2 Paresthesia of skin (principal); I10 Essential (primary) hypertension
CPT/HCPCS: 85025; 80048; 36415; 83735; 85610; 82565; 80076; 84484; 83880; 70450; 70496; 70498; 71045; 70551; Q9967; J7030; 96374; 99284

== ENCOUNTER 2025-03-25 10:26 | Emergency (ER) | payer BC ==
--- NOTE | 2025-03-25 11:27 | RAD REPORT ---
EXAMINATION: Head Brain Wo Cont CLINICAL INDICATION: Male, 39 years old.SYNCOPE TECHNIQUE: Axial CT images from the skull base to the vertex without intravenous contrast. Coronal an d sagittal reformatted images were created from the data set. One or more of the following dose reduction techniques were used: Automated exposure control, adjustment of the mA and/or kV according to patient size, and/or iterative reconstruction. Unless otherwise specified, incidental findings do not require dedicated imaging follow-up. [id number]. COMPARISON: 08/13/2022 FINDINGS: INTRACRANIAL: No acute intracranial hemorrhage. No hydrocephalus. No mass effect or midline shift. No significant white matter disease.Partially empty sella, typically normal variant. VASCULATURE: No visualized abnormalities in the arteries or dural venous sinuses. SCALP/SKULL: No calvarial fracture identified. No acute soft tissue abnormality. SINUSES: Bilateral maxillary sinus mucus retention cysts. No significant mastoid fluid. IMPRESSION: No acute intracranial abnormality. No significant change from prior.
--- NOTE | 2025-03-25 11:39 | RAD REPORT ---
EXAM: Chest Single View HISTORY: 39 years Male syncope COMPARISON: 08/13/2022 FINDINGS: LUNGS/PLEURA: The lungs are clear. No pleural effusions or pneumothorax. No pulmonary edema. CARDIAC/MEDIASTINUM: The cardiac silhouette is within normal limits. UPPER ABDOMEN: No significant abnormality. BONES: No acute abnormality. LINES/TUBES/OTHER: N/A IMPRESSION: No evidence of acute cardiopulmonary disease.
[2025-03-25] MEDS ORDERED: NA CHLORIDE 0.9% 1,000 ML ONE (11:42)
[2025-03-25 12:00] LABS: Absolute Eosinophils 0.1 K/uL (0-0.5); Absolute Lymphocytes (CBC) 1.5 K/uL (0.7-4.9); Absolute Monocytes 0.3 K/uL (0.1-1.3); Absolute Neutrophil 3.5 K/uL (1.8-8.0); Basophils % 0.8 % (0-1.3); Eosinophils % 1.8 % (0-4.4); Hematocrit 38.8 % (39.6-49.0); Hemoglobin 13.7 g/dL (13.6-17.9); Lymphocytes % 27.6 % (15.3-44.8); MCH 28.6 pg (27.0-35.0); MCHC 35.4 g/dL (32.0-36.0); MCV 80.7 fL (80-100); MPV 7.9 fL (7.6-11.3); Monocytes % 5.3 % (3.3-12.3); Neutrophils % 64.5 % (41.7-73.7); Nucleated Red Blood Cells % 0.1 % (0-0); Platelets 263 thou/uL (152-406); RBC Red Blood Cell Count 4.81 M/uL (4.33-5.43); Red Cell Distribution Width 13.1 % (12.1-15.2)
[2025-03-25 12:07] LABS: PT Prothrombin Time 11.5 SECONDS (10-13.0); PTT, Activated Partial Thromb 27.8 SECONDS (27.2-37.4); Protime INR 1.01
[2025-03-25 12:19] LABS: ALT/SGPT 56 U/L (16-61); AST/SGOT 17 U/L (15-37); Albumin 4.2 g/dL (3.4-5.0); Albumin/Globulin Ratio 1.2 (1.1-1.8); Alkaline Phosphatase 48 U/L (45-117); Anion Gap 9.2 mEq/L (5.0-15.0); BUN Blood Urea Nitrogen 18 mg/dL (7-18); Bicarbonate 31 mEq/L (21-32); Bilirubin Total 0.4 mg/dL (0.2-1.0); Globulin 3.6 g/dL (2.3-3.5); Glomerular Filtration Rate 57 ml/min (=/>90); Glucose Level 128 mg/dL (74-106); Magnesium 1.9 mg/dL (1.6-2.4); Potassium 3.2 mEq/L (3.5-5.1); Protein, Total 7.8 g/dL (6.4-8.2); Sodium Level 138 mEq/L (136-145); Troponin High Sensitivity 3.8 pg/mL (<58.9)
[2025-03-25 12:20] LABS: Bilirubin Direct < 0.2 mg/dL (0-0.2); Bilirubin Indirect, Calculated 0.2 mg/dL (0.2-0.8)
--- NOTE | 2025-03-25 12:55 | ER ---
Nurse's Notes [facility] – [place], [place] Name: Carson Bridges Age: 39 yrs Sex: Male : 1985 Arrival Date: 03/25/2025 Time: 10:26 Bed 20 Private MD: Diagnosis: Syncope Presentation: 03/25 11:15 Chief complaint: Patient states: passed out while at eye doctor , he felt himself get iw hot and was able to be laid down, did not hit head, he feels mostly back to normal. Coronavirus screen: At this time, the client does not indicate any symptoms associated with coronavirus-19. Ebola Screen: No symptoms or risks identified at this time. Initial Sepsis Screen: Does the patient meet any 2 criteria? No. Patient's initial sepsis screen is negative. Does the patient have a suspected source of infection? No. Patient's initial sepsis screen is negative. Risk Assessment: Do you want to hurt yourself or someone else? Patient reports no desire to harm self or others. Onset of symptoms was March 25, 2025. 11:15 Method Of Arrival: Ambulatory iw 11:15 Acuity: GALLO 3 iw Historical: - Allergies: 11:17 No Known Allergies; iw - PMHx: 11:05 Hypertension; iw 11:17 Hypercholesterolemia; iw - Immunization history:: Adult Immunizations unknown. - Infectious Disease History:: Denies. - Family history:: not pertinent. - Hospitalizations: : No recent hospitalization is reported. - Social history:: Smoking status: unknown. Screenin:50 [facility] ED Fall Risk Assessment (Adult) History of falling in the last 3 months, cm10 including since admission Yes- physiologic fall (2 pts) Confusion or Disorientation No (0 pts) Intoxicated or Sedated No (0 pts) Impaired Gait No (0 pts) Mobility Assist Device Used No (0 pt) Altered Elimination No (0 pt) Score/Fall Risk Level 0 - 2 = Low Risk Oriented to surroundings, Maintained a safe environment, Hourly rounding (assess needs \T\ fall precautionary measures) done. Abuse screen: Denies threats or abuse. Denies injuries from another. Nutritional screening: No deficits noted. Tuberculosis screening: No symptoms or risk factors identified. Assessment: 11:50 General: Appears in no apparent distress. comfortable, Behavior is calm, cooperative. cm10 Pain: Denies pain. Neuro: No deficits noted. Level of Consciousness is awake, alert, obeys commands, Oriented to person, place, time, situation, Appropriate for age Reports a syncopal episode. Cardiovascular: Patient's skin is warm and dry. Rhythm is regular. Respiratory: No deficits noted. Airway is patent Respiratory effort is even, unlabored, Respiratory pattern is regular, symmetrical. Derm: Skin is pink, warm \T\ dry. 13:00 Reassessment: Patient appears in no apparent distress at this time. Patient and/or cm10 family updated on plan of care and expected duration. Pain level reassessed. Patient is alert, oriented x 3, equal unlabored respirations, skin warm/dry/pink. Vital Signs: 11:05 BP 122 / 78; Pulse 70; Resp 16; Pulse Ox 100% on R/A; iw 12:00 BP 118 / 73; Pulse 72; Resp 15; Pulse Ox 96% on R/A; cm10 12:30 BP 112 / 73; Pulse 67; Resp 16; Pulse Ox 96% on R/A; cm10 13:00 BP 101 / 67; Pulse 59; Resp 15; Pulse Ox 100% on R/A; cm10 ED Course: 10:28 Patient arrived in ED. im 10:28 Johnny Juarez MD is Attending Physician. rn 11:00 Arm band placed on Patient placed in an exam room, on a stretcher. cm10 11:08 Jennifer Gonzales, GER is Primary Nurse. cm10 11:17 Triage completed. iw 11:21 CT Head Brain wo Cont In Process Unspecified. EDMS 11:29 Chest Single View XRAY In Process Unspecified. EDMS 11:50 Patient has correct armband on for positive identification. Bed in low position. Call cm10 light in reach. Side rails up X2. Client placed on continuous cardiac and pulse oximetry monitoring. NIBP monitoring applied. ekg monitor on. 11:52 Basic Metabolic Panel Sent. cm10 11:52 CBC with Diff Sent. cm10 11:52 Hepatic Function Sent. cm10 11:52 Magnesium Sent. cm10 11:52 Protime (+inr) Sent. cm10 11:52 Ptt, Activated Sent. cm10 11:52 Troponin High Sensitivity Sent. cm10 11:52 Initial lab(s) drawn, by fl, sent to lab. Inserted saline lock: 20 gauge in right cm10 antecubital area, using aseptic technique. Blood collected. Flushed with 10 mL NS. 12:16 EKG done, by ED staff, reviewed by Johnny Juarez MD. cm10 13:09 No provider procedures requiring assistance completed. IV discontinued, intact, cm10 bleeding controlled, No redness/swelling at site. Pressure dressing applied. 13:09 Provided Education on: Follow-up instructions. cm10 Administered Medications: 11:52 Drug: NS 0.9% IV 1000 ml IV at 1000 ml once; to be given as a bolus over 60 minutes cm10 Route: IV; Rate: 1000 ml; Site: right antecubital; 13:14 Follow up: Response: No adverse reaction; IV Status: Completed infusion; IV Intake: cm10 1000ml Medication: 11:50 VIS not applicable for this client. cm10 Intake: 13:14 IV: 1000ml; Total: 1000ml. cm10 Outcome: 12:54 Discharge ordered by . rn 13:09 Discharged to home ambulatory, with significant other, cm10 13:09 Condition: good 13:09 Discharge instructions given to patient, Instructed on discharge instructions, follow up and referral plans. Demonstrated understanding of instructions, follow-up care, 13:14 Patient left the ED. cm10 Signatures: Dispatcher [employer] EDKatiuska Sosa, RN Johnny Maciel MD MD rn Mendoza, Itzel im Martinez, Clarissa, RN RN cm10
--- NOTE | 2025-03-25 12:55 | EDPHYS ---
Physician Documentation [facility] Name: Carson Bridges Age: 39 yrs Sex: Male : 1985 Arrival Date: 03/25/2025 Time: 10:26 Bed 20 Private MD: ED Physician Johnny Juarez HPI: 03/25 11:33 This 39 yrs old Male presents to ER via Ambulatory with complaints of Passed Out Prior rn To Arrival. 11:33 The patient has experienced syncope. Current symptoms: Currently, the patient is not rn experiencing any symptoms. Patient reports was at adult live in caregiver office, shortly after visit concluded patient started feeling lightheaded and dizzy, felt like he needed to lie down, had single syncopal episode that lasted 10 to 15 seconds. No seizure activity reported. Patient was discharged home as he felt better and once he got home his spouse wanted him to get checked out. Patient pretty much back to baseline. No preceding chest pain or shortness of breath. No focal neurological deficit. No headache. No head injury or trauma either.. Historical: - Allergies: 11:17 No Known Allergies; iw - PMHx: 11:05 Hypertension; iw 11:17 Hypercholesterolemia; iw - Immunization history:: Adult Immunizations unknown. - Infectious Disease History:: Denies. - Family history:: not pertinent. - Hospitalizations: : No recent hospitalization is reported. - Social history:: Smoking status: unknown. ROS: 11:33 Constitutional: Negative for fever, chills, and weight loss, Eyes: Negative for injury, rn pain, redness, and discharge, ENT: Negative for injury, pain, and discharge, Neck: Negative for injury, pain, and swelling, Cardiovascular: Negative for chest pain, palpitations, and edema, Respiratory: Negative for shortness of breath, cough, wheezing, and pleuritic chest pain, Abdomen/GI: Negative for abdominal pain, nausea, vomiting, diarrhea, and constipation, MS/Extremity: Negative for injury and deformity, Skin: Negative for injury, rash, and discoloration, Neuro: Negative for headache, weakness, numbness, tingling, and seizure, Exam: 11:33 Constitutional: This is a well developed, well nourished patient who is awake, alert, rn and in no acute distress. Head/Face: Normocephalic, atraumatic. Eyes: Pupils equal round and reactive to light, extra-ocular motions intact. Cardiovascular: Regular rate and rhythm. No pulse deficits. Respiratory: Speaking full sentences, unlabored. No increased work of breathing, no retractions or nasal flaring. Abdomen/GI: Soft, non-tender Skin: Warm, dry MS/ Extremity: Pulses equal, no cyanosis. Neurovascular intact. Full, normal range of motion. Equal circumference. Neuro: Awake and alert, GCS 15, oriented to person, place, time, and situation. Cranial nerves II-XII grossly intact. Motor strength 5/5 in all extremities. Sensory grossly intact. Cerebellar exam normal. 13:12 ECG was reviewed by the Attending Physician. rn Vital Signs: 11:05 BP 122 / 78; Pulse 70; Resp 16; Pulse Ox 100% on R/A; iw 12:00 BP 118 / 73; Pulse 72; Resp 15; Pulse Ox 96% on R/A; cm10 12:30 BP 112 / 73; Pulse 67; Resp 16; Pulse Ox 96% on R/A; cm10 13:00 BP 101 / 67; Pulse 59; Resp 15; Pulse Ox 100% on R/A; cm10 MDM: 10:29 Medical Screening Exam initiated rn 12:51 Differential Diagnosis: cardiac arrhythmia, emotional response, idiopathic syncope, rn vasovagal episode. Data reviewed: vital signs, nurses notes, lab test result(s), EKG, radiologic studies, CT scan, plain films, and as a result, I will discharge patient. Counseling: I had a detailed discussion with the patient and/or guardian regarding the historical points, exam findings, and any diagnostic results supporting the discharge/admit diagnosis, lab results, radiology results, the need for outpatient follow up, to return to the emergency department if symptoms worsen or persist or if there are any questions or concerns that arise at home. Special discussion: I discussed with the patient/guardian in detail that at this point there is no indication for admission to the hospital. It is understood, however, that if the symptoms persist or worsen the patient needs to return immediately for re-evaluation. ED course: No acute findings and workup today. 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 Blood work shows known kidney problems. No new findings. Patient is back to baseline. Patient had a cardiology workup [address] Thayer and cleared. Will discharge home with return precautions. I have personally reviewed all of the results, including but not limited to blood tests and imaging deemed necessary to safely discharge this patient at this time. All results given to and printed out for patient. I personally went over all the results with the patient and answered all questions. Patient will follow-up with PCP and or specialist as discussed. Return precautions given and understood.. 03/25 11:00 Order name: Basic Metabolic Panel; Complete Time: 12:20 rn 03/25 11:00 Order name: CBC with Diff; Complete Time: 12:12 rn 03/25 11:00 Order name: Hepatic Function; Complete Time: 12:20 rn 03/25 11:00 Order name: Magnesium; Complete Time: 12:20 rn 03/25 11:00 Order name: Protime (+inr); Complete Time: 12:12 rn 03/25 11:00 Order name: Ptt, Activated; Complete Time: 12:12 rn 03/25 11:00 Order name: Troponin High Sensitivity; Complete Time: 12:20 rn 03/25 11:00 Order name: CT Head Brain wo Cont; Complete Time: 12:12 rn 03/25 11:00 Order name: Chest Single View XRAY; Complete Time: 12:12 rn 03/25 11:00 Order name: Cardiac monitoring; Complete Time: 12:16 rn 03/25 11:00 Order name: EKG - Nurse/Tech; Complete Time: 12:16 rn 03/25 11:00 Order name: IV Saline Lock; Complete Time: 11:52 rn 03/25 11:00 Order name: Labs collected and sent; Complete Time: : rn 03/25 11:00 Order name: O2 Per Protocol; Complete Time: : rn 03/25 11:00 Order name: O2 Sat Monitoring; Complete Time: : rn EC:12 Rate is 58 beats/min. Rhythm is regular. Right axis deviation noted. QRS is positive in rn lead aVF and negative in lead I. QRS interval is normal. QT interval is normal. No Q waves. T waves are Normal. No ST changes noted. Clinical impression: Sinus bradycardia. Interpreted by me. Reviewed by me. Administered Medications: : Drug: NS 0.9% IV 1000 ml IV at 1000 ml once; to be given as a bolus over 60 minutes cm10 Route: IV; Rate: 1000 ml; Site: right antecubital; 13:14 Follow up: Response: No adverse reaction; IV Status: Completed infusion; IV Intake: cm10 1000ml Disposition Summary: 03/25/25 12:54 Discharge Ordered Notes: Location: Home rn Problem: new rn Symptoms: are resolved rn Condition: Stable rn Diagnosis - Syncope rn Followup: rn - With: Private Physician - When: As needed - Reason: Recheck today's complaints, Re-evaluation by your physician Discharge Instructions: - Discharge Summary Sheet rn - Syncope rn Forms: - Medication Reconciliation Form rn - Antibiotic customer success intern - Prescription Opioid Use rn - Patient Portal Instructions rn - Leadership Thank You Letter rn Signatures: Dispatcher [employer] VALPA Katiuska Peña RN RN iw Nieto, Roman, MD MD rn Martinez, Clarissa, RN RN cm10 Corrections: (The following items were deleted from the chart) 11: 11:00 BASIC METABOLIC PANEL+C.LAB.BRZ ordered. [facility] 11: 11:00 CBC+H.LAB.BRZ ordered. [facility] 11: 11:00 HEPATIC FUNCTION+C.LAB.BRZ ordered. [facility] 11: 11:00 MAGNESIUM+C.LAB.BRZ ordered. [facility] 11: 11:00 PROTIME (+INR)+COAG.LAB.BRZ ordered. [facility] 11: 11:00 PTT, ACTIVATED+COAG.LAB.BRZ ordered. [facility] 11: 11:00 Troponin High Sensitivity+C.LAB.BRZ ordered. [facility] 11: 11:01 Chest Single View+RAD.RAD.BRZ ordered. [facility] 11:34 11:33 Constitutional: Negative for fever, chills, and weight loss, Cardiovascular: rn Negative for chest pain, palpitations, and edema, Respiratory: Negative for shortness of breath, cough, wheezing, and pleuritic chest pain, Abdomen/GI: Negative for abdominal pain, nausea, vomiting, diarrhea, and constipation, MS/Extremity: Negative for injury and deformity, Skin: Negative for injury, rash, and discoloration, Neuro: Negative for headache, weakness, numbness, tingling, and seizure, rn
[2025-03-25 13:59] VITALS: BP 101/67; O2SAT 100
--- NOTE | 2025-03-28 12:07 | EKG ---
Test Date: 2025-03-25 Test Time: 11:58:39 Blow Molding Machine Operator: CHARU MEASUREMENT RESULTS: Intervals: Rate: 58 MN: 134 QRSD: 104 QT: 448 QTc: 439 [place]: P: 46 MN: 134 QRS: 98 T: 24 INTERPRETIVE STATEMENTS: Sinus bradycardia Rightward axis Nonspecific T wave abnormality Abnormal ECG Compared to ECG 10/25/2019 17:13:52 Right-axis deviation now present T-wave abnormality now present Sinus rhythm no longer present Incomplete right bundle-branch block no longer present Electronically Signed On 03-28-25 12:05:18 CDT by Bronson Loaiza
== END 2025-03-25 13:14 | disposition home or self-care (01) ==
LOC: ER 10:26
DX: R55 Syncope and collapse (principal); I10 Essential (primary) hypertension; E78.00 Pure hypercholesterolemia, unspecified
CPT/HCPCS: 93005; 85025; 80048; 36415; 83735; 85610; 80076; 85730; 84484; 70450; 71045; 96360; 99285; J7030